=== PATIENT | male | born 1970 | race Caucasian/White ===

== ENCOUNTER 2022-05-08 09:32 | Outpatient (REF) | payer OTHER, SELFPAY ==
--- NOTE | ~2022-05-08 | US_ITS ---
EXAMINATION: US ABDOMEN LIMITED CLINICAL INFORMATION: Abnormal liver enzymes. COMPARISON: None TECHNIQUE: Real-time imaging of the right upper quadrant abdominal viscera. FINDINGS: PANCREAS: Normal. LIVER: The liver is normal in size. The liver contour is normal. There is diffuse increased liver parenchymal echogenicity, consistent with hepatic steatosis. No focal hepatic lesion. There is no intrahepatic biliary duct dilatation seen. GALLBLADDER: The gallbladder is physiologically distended. Gallbladder is filled with multiple large stones. There is echogenic bile. No fluid is seen in the gallbladder wall and no pericholecystic fluid collections. Roberson's sign is negative. COMMON BILE DUCT: Normal in caliber measuring 0.4 cm in diameter. RIGHT KIDNEY: Normal. No hydronephrosis. No renal calculi or focal parenchymal lesions. The kidney measures 10.9 cm in maximum dimension. FREE FLUID: None. US/US abdomen limited IMPRESSION: 1. Hepatic steatosis. 2. Cholelithiasis without cholecystitis.
== END 2022-05-08 09:33 | disposition home or self-care (01) ==
LOC: HO.US 09:32
PROVIDERS: Visit Provider Internal Medicine
DX: R79.89 Other specified abnormal findings of blood chemistry (principal)
CPT/HCPCS: 76705

== ENCOUNTER → 2022-06-09 09:43 | Outpatient (BNVA) | payer OTHER, SELFPAY | PROVIDERS: PCP Internal Medicine; Referring Provider Internal Medicine; Visit Provider Internal Medicine Cardiovascular Disease | DX: R07.89 Other chest pain (principal); I10 Essential (primary) hypertension | CPT/HCPCS: 93005 ==

== ENCOUNTER → 2022-06-30 08:00 | Outpatient (REF) | payer OTHER, SELFPAY ==
--- NOTE | 2022-06-30 08:03 | CA_ITS ---
Transthoracic Echocardiogram Patient (Last, First, Middle): Juan Becerra E Gender: Male Date of : 1970 Age: 52 Procedure Date: 06/30/2022 Procedure Type: Transthoracic Echocardiogram Location: OP Height: 160.02 cm Weight: 76.2 kg BSA: 1.80 m2 Heart Rate: bpm BP: 132 / 89 mmHg Retail Beauty Specialist: OSCAR Referring MD: Jose Zepeda MD Symptoms: I10 - Essential (primary) hypertension Study Quality: Adequate ECG Rhythm: Sinus Conclusions: - The left ventricular systolic function is normal. The calculated ejection fraction is 59% by biplane method. - LV peak GLS -19.9%. - No obvious valvular pathology seen on this study. Findings Left Ventricle Normal left ventricular cavity size. There is normal left ventricular wall thickness. The left ventricular systolic function is normal. The calculated ejection fraction is 59% by biplane method. There is no evidence of regional wall motion abnormalities. Diastolic function is normal for age. LV peak GLS -19.9%. Right Ventricle Normal right ventricular cavity size and systolic function. Atria Both atria are normal in size. Aortic Valve There is a normal trileaflet aortic valve. There is no aortic valve stenosis. There is no aortic valve regurgitation. Mitral Valve The mitral valve appears normal. There is trace mitral valve regurgitation. There is no mitral valve stenosis. Pulmonic Valve The pulmonic valve is likely normal. Tricuspid Valve Normal tricuspid valve structure. There is trace tricuspid valve regurgitation. There is no evidence of pulmonary hypertension. Great Vessels The asc aorta and aortic arch are normal in size. Venous The inferior vena cava is normal in size and collapses greater than 50% with inspiration. Pericardium/Pleural There is no evidence of pericardial effusion. Prior Study Comparison No prior study available for comparison. Recommendations, Care & Conclusions No obvious valvular pathology seen on this study. Measurements 2D Linear Measurements IVSd: 0.89 0.6-0.9/0.6-1.0 cm LVIDd: 5.14 3.9-5.3/4.2-5.9 cm LVIDd Index: 2.86 2.4-3.2/2.2-3.1 cm/m2 LVIDs: 3.08 2.0-3.6 cm LVPWd: 0.83 0.7-1.1 cm LA Diam: 3.80 2.7-3.8/3.0-4.0 cm LAIDs Index: 2.11 1.5-2.3 cm/m2 LV Mass: 193.78 67-162/88-224 g LV Mass Index: 107.66 43-95/49-115 g/m2 LVOT Diam: 1.90 3.0+(-)1.3 cm 2D Systolic Function EF 4C: 57.40 >55% EF 2C: 60.20 >55% EF BiP: 58.80 >55% Mitral Valve MV Pk E: 0.90 MV PK A: 0.72 MV Decel Time: 187.00 E/A: 1.30 E'Lateral: 12.10 E'Medial: 7.18 E/E' Med: 12.60 E/E' Lat: 7.50 PHT: 55.00 MVA PHT: 4.00 Decel Bulloch: 4.84 Aortic Valve AoV Pk Zbigniew: 1.45 AoV Mn Zbigniew: 1.05 AoV VTI: 0.35 AoV Pk Grad: 8.00 Aov Mn Grad: 5.00 VALENTINA Cont.VTI: 1.97 LVOT LVOT Pk Zbingiew: 1.07 LVOT Mn Zbigniew: 0.72 LVOT VTI: 0.24 LVOT Pk Grad: 5.00 LVOT Mn Grad: 2.00 LVOT Diam: 1.90 LVOT Area: 2.84 Diastolic Function MV Pk E: 0.90 MV Pk A: 0.72 E/A: 1.30 E'Medial: 7.18 E/E' Med: 12.60 E' Laterial: 12.10 E/E' Lat: 7.50 Right Ventricle TAPSE (mm): 22.60 TVS' Zbigniew: 13.30 Tricuspid Valve TR Pk Zbigniew: 2.13 TR Pk Grad: 18.00 RA Press: 3.00 RVSP: 21.00 Great Vessels Aorta Sinus of Valsalva: 3.33 2.0-3.[address] Ridge: 2.70 1.7-3.4 cm Ao Asc: 3.40 2.1-3.4 cm Ao Arch: 2.90 Updated in Other Vendor System with Status of Final Brent oMtta MD electronically signed on 06/30/2022 4:50:13 PM with status of Final
== END ==
LOC: HO.CARD 08:00
PROVIDERS: Visit Provider Internal Medicine Cardiovascular Disease
DX: I10 Essential (primary) hypertension (principal)
CPT/HCPCS: 93306; 93356

== ENCOUNTER → 2022-07-09 10:52 | Outpatient (REF) | payer OTHER, SELFPAY ==
--- NOTE | 2022-07-09 10:57 | CA_ITS ---
Acquisition Time: 2022-07-09 10:57:19 Total Exercise Time: 00:10:46 Test Indications: CP Medications: SEE H Protocol: GALI Max HR: 176 BPM 106% of Pred: 166 BPM Max BP: 164/100 mmHG Max Work Load: 13.0 METS Exercise stress test exercise 10 min 46 sec of Gali protocol achieving 96% MPHR, without anginal symptoms, without arrythmias, with normotensive response to exericse, without EKG changes, Echo images obtained by tech at rest and immediately post peak exercise. Definty contrast used. Non-specific ST changes in late recovery. Test reviewed with Dr. Manriquez. Referred By: Jose Zepeda Overread By: BANDAR RAY
== END ==
LOC: HO.CARD 10:52
PROVIDERS: Visit Provider Internal Medicine Cardiovascular Disease
DX: R07.89 Other chest pain (principal); I10 Essential (primary) hypertension
CPT/HCPCS: 93350; Q9957

== ENCOUNTER → 2022-07-10 08:45 | Outpatient (BNVA) | payer OTHER, SELFPAY | PROVIDERS: PCP Internal Medicine; Visit Provider Internal Medicine Cardiovascular Disease | DX: Z13.89 Encounter for screening for other disorder (principal) ==

== ENCOUNTER → 2022-08-13 07:49 | Outpatient (BNVA) | payer OTHER, SELFPAY | PROVIDERS: PCP Internal Medicine; Referring Provider Internal Medicine; Visit Provider Nurse Practitioner Family ==

== ENCOUNTER 2023-12-02 07:54 | Outpatient (REF) | payer OTHER, SELFPAY ==
[2023-12-02 14:22] LABS: MANUAL DIFF FLAG NO
[2023-12-02 14:26] LABS: Basophils Absolute Auto 0.1 X10*3/uL (0.0-0.2); Basophils Percent Auto 0.7 % (0-2); Eosinophils Absolute Auto 0.4 X10*3/uL (0.0-0.4); Eosinophils Percent Auto 6.3 % (0-4); Hematocrit 46.7 % (42.0-52.0); Hemoglobin 15.9 g/dl (14.0-18.0); Imm Gran Abs Auto 0.02 X10*3/uL (0.00-0.03); Imm Gran Pct Auto 0.3 % (0.0-0.4); Lymphocytes Absolute Auto 1.5 X10*3/uL (1.2-4.9); Lymphocytes Percent Auto 21.6 % (20-40); Mean Corpuscular Hemoglobin 29.7 pg (27.0-33.0); Mean Corpuscular Volume 87.1 fL (80.0-98.0); Monocytes Absolute Auto 0.7 X10*3/uL (0.1-1.2); Monocytes Percent Auto 9.7 % (2-11); Neutrophils Absolute Auto 4.2 x10*3/uL (2.0-8.3); Neutrophils Percent Auto 61.4 % (45-73); Platelet Count 235 X10*3/uL (160-400); Red Blood Count 5.36 X10*6/uL (4.60-5.80); Red Cell Distribution Width 12.1 % (11.0-16.0); White Blood Count 6.8 X10*3/uL (4.8-10.8)
[2023-12-02 14:46] LABS: Alanine Aminotransferase 26 U/L (0-40); Albumin Level 4.3 g/dL (3.5-5.0); Alkaline Phosphatase 65 U/L (39-117); Anion Gap 10 (12-20); Aspartate Amino Transferase 22 U/L (5-37); Bilirubin Total 0.6 mg/dL (0.0-1.0); Blood Urea Nitrogen 15 mg/dL (9-16); Calcium 9.3 mg/dL (8.4-10.2); Carbon Dioxide 32 mmol/L (22-29); Chloride 104 mmol/L (96-108); Cholesterol 235 mg/dL (<200); Estimated Glomerular Filt Rate > 60; Glucose Random 94 mg/dL (60-115); HDL Cholesterol 49 mg/dL (>40); LDL Cholesterol Calculated 166 mg/dL (<100); Potassium 3.4 mmol/L (3.3-5.1); Sodium 143 mmol/L (135-145); Total Protein 7.2 g/dL (6.5-8.0); Triglycerides 101 mg/dL (<150)
[2023-12-02 14:56] LABS: Prostate Specific Antigen Scr 0.53 ng/mL (<0.05-4.0)
[2023-12-02 15:02] LABS: TSH reflex Free T4 1.34 uIU/mL (0.32-4.0)
[2023-12-04 13:49] LABS: HCV Log PCR <1.18 NOT DETECTED Log IU/mL (NOT DETECTED); HepC Viral Load <15 NOT DETECTED IU/mL (NOT DETECTED)
== END 2023-12-02 07:55 | disposition home or self-care (01) ==
LOC: HO.CHCLDS 07:54
PROVIDERS: Visit Provider Internal Medicine
DX: Z00.00 Encounter for general adult medical examination without abnormal findings (principal); I10 Essential (primary) hypertension; Z12.5 Encounter for screening for malignant neoplasm of prostate
CPT/HCPCS: 36415; 80053; 80061; 84153; 84443; 85025; 87522

== ENCOUNTER 2024-04-14 08:10 | Outpatient (REF) | payer OTHER, SELFPAY ==
[2024-04-14 14:21] LABS: Cholesterol 239 mg/dL (<200); HDL Cholesterol 50 mg/dL (>40); LDL Cholesterol Calculated 162 mg/dL (<100); Triglycerides 136 mg/dL (<150)
== END 2024-04-14 08:11 | disposition home or self-care (01) ==
LOC: HO.CHCLDS 08:10
PROVIDERS: Visit Provider Internal Medicine
DX: E78.00 Pure hypercholesterolemia, unspecified (principal)
CPT/HCPCS: 36415; 80061

== ENCOUNTER → 2024-05-10 10:17 | Outpatient (BNVA) | payer OTHER, SELFPAY | PROVIDERS: PCP Internal Medicine; Visit Provider Physician Assistant | DX: S93.402A Sprain of unspecified ligament of left ankle, initial encounter (principal); W01.0XXA Fall on same level from slipping, tripping and stumbling without subsequent striking against object, initial encounter | CPT/HCPCS: 73610; 99203 ==

== ENCOUNTER → 2024-05-17 10:30 | Outpatient (BNVA) | payer OTHER, SELFPAY | PROVIDERS: PCP Internal Medicine; Visit Provider Physician Assistant Medical | DX: S93.492A Sprain of other ligament of left ankle, initial encounter (principal); W01.0XXA Fall on same level from slipping, tripping and stumbling without subsequent striking against object, initial encounter | CPT/HCPCS: 99213 ==

== ENCOUNTER 2024-05-25 19:27 | Outpatient (REF) | payer OTHER, SELFPAY ==
--- NOTE | ~2024-05-25 | MR_ITS ---
CLINICAL HISTORY: Swelling and pain after slip and fall on ice MR left ankle without gadolinium Comparison: None Findings: Normal alignment without acute fracture. Minimal incompletely visualized periostitis of the visualized distal fibular shaft above the syndesmosis likely posttraumatic in nature. There is mild neighboring subcutaneous fat edema. Guol-ft-ekrfeaxf contusion of the lateral aspect of the talus in the vicinity of the posterior subtalar joint. Mild subchondral edematous changes in the opposing aspect of the calcaneus. Contusion of the posterior malleolus. Small posterior ankle and posterior subtalar joint effusions with mild ankle synovitis. Torn anterior tibiofibular ligament and grade 2 sprain of the posterior tibiofibular ligament. Grade 2 sprain of the anterior talofibular ligament. Rest of lateral as well as deltoid and spring ligamentous complexes are unremarkable. Longitudinal split tear of the peroneus brevis tendon at and just distal to the lateral malleolus. Small amount of fluid in 2 of the posterior tendon sheaths is likely reactive in nature. Intact extensor tendons. Mild Achilles tendinosis along with minimal distention of the retrocalcaneal bursa. Mild likely reactive edematous changes in the medial aspect of the posterior calcaneal tuberosity at level of the Achilles footprint. Mild plantar fascioapathy at level of its origin. Additionally mildly nodular and partially fusiform thickening (up to 5 mm) of the central band of the plantar aponeurosis at level of the tarsometatarsal joints and distal metatarsal bones suggestive of more distal plantar fascioapathy +/- plantar fibromatosis. Mild sinus tarsi edematous changes. Muscle bulk maintained. Unremarkable neurovascular structures. IMPRESSION: 1. Minimal distal fibular likely posttraumatic periostitis and mild lateral talar bone marrow contusion. 2. Grade 2-3 sprains of the anterior and posterior tibiofibular and anterior talofibular ligaments. 3. Longitudinal split tear of the peroneus brevis tendon at and just distal to the lateral malleolus. 4. Mild Achilles tendinosis. 5. Mild plantar fascikopathy +/-plantar fibromatosis as described above. This document has been electronically signed by: Fariha Cintron MD on 05/26/2024 11:45:19
== END 2024-05-25 19:28 | disposition home or self-care (01) ==
LOC: HO.MRI 19:27
PROVIDERS: PCP Internal Medicine; Visit Provider Internal Medicine
DX: M25.472 Effusion, left ankle (principal)
CPT/HCPCS: 73721

== ENCOUNTER → 2024-05-25 19:30 | Outpatient (BNV) | payer OTHER, SELFPAY | PROVIDERS: PCP Internal Medicine; Visit Provider Radiology Diagnostic Radiology | DX: M25.572 Pain in left ankle and joints of left foot (principal) | CPT/HCPCS: 73721 ==

== ENCOUNTER → 2024-05-31 10:34 | Outpatient (BNVA) | payer OTHER, SELFPAY | PROVIDERS: PCP Internal Medicine; Visit Provider Physician Assistant Medical | DX: S93.402A Sprain of unspecified ligament of left ankle, initial encounter (principal); W01.0XXA Fall on same level from slipping, tripping and stumbling without subsequent striking against object, initial encounter | CPT/HCPCS: 99213 ==

== ENCOUNTER 2024-06-14 07:57 | Outpatient (AMB) | payer OTHER, SELFPAY ==
--- OUTSIDE RECORDS SUMMARY | 2024-06-14 08:00 | XMS_ITS | Encounter Summary ---
Author Organization [employer] Address [address] [facility] 7t [place] [address] Care Team Providers Care Vice President Of Product Marketing Name Role Phone Morena Manley MD Primary Care Provider [phone] Encounter Details Date Type Department Care Team ([facility] st Contact Info) Description 04/14/2024 Orders Only [facility] CH[facility] MED & PEDS [address], [place] [phone] Morena Manley MD [address] [place] [address] Social History Tobacco Use Types Packs/Day Years Used Date Smoking Tobacco: Former Cigarettes 0.3 20 1 2016 Smokeless Tobacco: Never Alcohol Use Standard Drinks/Week Comments Not Currently 6 (1 standard drink = 0.6 oz pur e alcohol) Depression Answer Date Recorded Patient Health Questionnaire-9 Score 0 04/10/2024 Patient Health Questionnaire-9 Score 0 04/10/2024 Last PHQ-9: Questionnaire Data Not on file 0 04/10/2024 Housing Stability Answer Date Recorded What is your housing situation today? I have tahira barbour 11/23/[address] you li ve. Do you have problems with any of the following? None of the above 11/23/2023 Food Insecurity Answer Date Recorded Within the past 12 months, y ou worried that your food would run out before you got money to buy more: Never True 11/23/2023 Within the past 12 months,th e food you bought just didn't last and you didn't have enough money to get more: Never True Transportation Answer Date Recorded In the past 12 months, has l ack of transportation kept you from medical appts, meetings, work or from getting things needed for daily living? No 11/23/2023 Utilities Answer Date Recorded In the past 12 months, has t he electric, gas, oil or water company threatened to shut off services in your home? No 11/23/2023 Depression Answer Date Recorded Patient Health Questionnaire-2 Score 0 04/10/2024 Internet Access Answer Date Recorded Internet Access Q1 Yes 12/03/2023 Internet Access Q2 Not on file 12/03/2023 Sex and Gender Information Value Date Recorded Sex Assigned at Male 02/02/2022 10:14 AM EDT Legal Sex Male 10:14 AM EDT Gender Identity Male 02/02/2022 10:14 AM EDT Sexual Orientation Straight 02/02/2022 10 :14 AM EDT documented as of this encounter Plan of Treatment Not on file documented as of this encounter Procedures Procedure Name Priority Date/Time Associated Diagnosis Comments XR ANKLE 3+ VIEWS LEFT Routine 05/10/2024 11:10 AM EST documented in this encounter Results * XR Ankle 3+ Views Left (05/10/2024 11:10 AM EST) Anatomical Region Laterality Modality Lower Extremities, Ankle Left Radiogr aphic Imaging 05/10/2024 11:1 0 AM EST Narrative 05/10/2024 11:48 AM EST ? [facility] ?[address] ?[place] [address] ?XRay Report ? Signed ? Patient: Hernan,Julio ?MR#: [id number] ?? 4 ? : 1970 ?Acct:[id number] ? Age/Sex: 53 / M ?ADM Date: 05/10/24 ? Loc: HO.WC ? Attending Dr: Neris MISTRY ? Ordering Physician: Karina Reese ?? Date of Service: 05/10/24 ?? Procedure(s): XR ankle LT min 3V ?? Accession Number(s): [id number] ? cc: Morena aMnley MD; Karina Reese ? EXAMINATION: ?? XR ANKLE, LEFT ? CLINICAL INFORMATION: ?? pain in left ankle and joints of left foot ? COMPARISON: ?? None available. ? TECHNIQUE: ?? AP, lateral, and mortise views of the left ankle. ? FINDINGS: ?? Edema pattern versus soft tissue contusion lateral malleolus. No acute ?? cortical disruption or malalignment. No lytic or blastic lesions. Small ?? spur in the calcaneus. ? XR/XR ankle LT min 3V ?? IMPRESSION: ?? No acute fracture or dislocation. ? Electronically signed by: ??Kelvin Solano MD ??05/10/2024 11:45 AM ?? EST RP ? Dictated By: ?Kelvin Pang MD ? Signed By: ?<Electronically signed by Kelvin Griffin MD in OV> ? 05/10/24 1145 ? DD/ 1110 ? TD/TT: 05/10/24 1115 ? [employer]: ? Procedure Note Kaitlinter, Image - 05/10/2024 [place] [address] XRay Report Signed Patient: Juan Becerra EMR#: [id number] 4 : 1970Acct:[id number] Age/Sex: 53 / MADM Date: 05/10/24 Loc: HO. Attending Dr: Neris MISTRY Ordering Physician: Karina Reese Date of Service: 05/10/24 Procedure(s): XR ankle LT min 3V Accession Number(s): [id number] cc: Morena Manley MD; Karina Reese EXAMINATION: XR ANKLE, LEFT CLINICAL INFORMATION: pain in left ankle and joints of left foot COMPARISON: None available. TECHNIQUE: AP, lateral, and mortise views of the left ankle. FINDINGS: Edema pattern versus soft tissue contusion lateral malleolus. No acute cortical disruption or malalignment. No lytic or blastic lesions. Small spur in the calcaneus. XR/XR ankle LT min 3V IMPRESSION: No acute fracture or dislocation. Electronically signed by: Kelvin Solano MD 05/10/2024 11:45 AM EST Dictated By: Kelvin Pang MD Signed By: <Electronically signed by Kelvin Griffin MDin OV> 05/10/24 1145 DD/ 1110 TD/TT: 05/10/24 1115 [employer]: [facility] External Provider IMG XR PROCEDURES Edited Result - Final documented in this encounter Visit Diagnoses Not on filedocumented in this encounter Additional Health Concerns Assessment Noted Time PHQ-9 Depression Total Score: 0 04/10/19 25 1:10 PM EST documented as of this encounter Care Teams Vice President Of Product Marketing Relationship Specialty Start Date End Date Morena Manley MD [address] [place] [id number] PCP - General Internal Medicine 03/30/13 documented as of this encounter
--- OUTSIDE RECORDS SUMMARY | 2024-06-14 08:00 | XMS_ITS | Encounter Summary ---
Author Organization [employer] Address [address] [facility] 7t [place] [address] Care Team Providers Care Cone Operator Name Role Phone Morena Manley MD Primary Care Provider [phone] Encounter Details Date Type Department Care Team ([facility] Contact Info) Description 05/25/2024 Orders Only [facility] External Provider, [facility] Social History Tobacco Use Types Packs/Day Years Used Date Smoking Tobacco: Former Cigarettes 0.3 20 2016 Smokeless Tobacco: Never Alcohol Use Standard [...] Procedure Name Priority Date/Time Associated Diagnosis Comments MR ANKLE WO CONTRAST LEFT Routine 05/26/2024 11:45 AM EST documented in this encounter Results * MR Ankle w/o Contrast Left (05/26/2024 11:45 AM EST) Anatomical Region Laterality Modality Lower Extremities, Ankle Left Magneti c Resonance 05/26/2024 11:4 5 AM EST Narrative 05/26/2024 11:46 AM EST ? [facility] ?[address] ?[place] [address] ? Magnetic Resonance Report ? Signed ? Patient: Juan Becerra ?MR#: [id number] ?? 4 ? : 1970 ?Acct:[id number] ? Age/Sex: 53 / M ?ADM Date: 05/25/24 ? Loc: HO.MRI ? Attending Dr: Eliazar Bone MD ? Ordering Physician: Eliazar Bone MD ?? Date of Service: 05/25/24 ?? Procedure(s): MR ankle LT wo con ?? Accession Number(s): [id number] ? cc: Morena Manley MD; Eliazar Bone MD ? CLINICAL HISTORY: Swelling and pain after slip and fall on ice ? MR left ankle without gadolinium ? Comparison: None ? Findings: ?? Normal alignment without acute fracture. Minimal incompletely visualized ?? periostitis of the visualized distal fibular shaft above the syndesmosis ?? likely posttraumatic in nature. There is mild neighboring subcutaneous fat ?? edema. ?? Vree-gs-orxinduj contusion of the lateral aspect of the talus in the ?? vicinity of the posterior subtalar joint. Mild subchondral edematous ?? changes in the opposing aspect of the calcaneus. ?? Contusion of the posterior malleolus. ? Small posterior ankle and posterior subtalar joint effusions with mild ?? ankle synovitis. ? Torn anterior tibiofibular ligament and grade 2 sprain of the posterior ?? tibiofibular ligament. Grade 2 sprain of the anterior talofibular ?? ligament. Rest of lateral as well as deltoid and spring ligamentous ?? complexes are unremarkable. ? Longitudinal split tear of the peroneus brevis tendon at and just distal ?? to the lateral malleolus. Small amount of fluid in 2 of the posterior ?? tendon sheaths is likely reactive in nature. Intact extensor tendons. ? Mild Achilles tendinosis along with minimal distention of the ?? retrocalcaneal bursa. Mild likely reactive edematous changes in the medial ?? aspect of the posterior calcaneal tuberosity at level of the Achilles ?? footprint. ? Mild plantar fascioapathy at level of its origin. Additionally mildly ?? nodular and partially fusiform thickening (up to 5 mm) of the central band ?? of the plantar aponeurosis at level of the tarsometatarsal joints and ?? distal metatarsal bones suggestive of more distal plantar fascioapathy +/- ?? plantar fibromatosis. ? Mild sinus tarsi edematous changes. ?? Muscle bulk maintained. Unremarkable neurovascular structures. ? IMPRESSION: ?? 1. Minimal distal fibular likely posttraumatic periostitis and mild ?? lateral talar bone marrow contusion. ?? 2. Grade 2-3 sprains of the anterior and posterior tibiofibular and ?? anterior talofibular ligaments. ?? 3. Longitudinal split tear of the peroneus brevis tendon at and just ?? distal to the lateral malleolus. ?? 4. Mild Achilles tendinosis. ?? 5. Mild plantar fascikopathy +/-plantar fibromatosis as described above. ? This document has been electronically signed by: Fariha Cintron MD on ?? 05/26/2024 11:45:19 ? Dictated By: ?Fariha Cintron MD ? Signed By: ?<Electronically signed by Fariha Cintron MD in OV> ? 05/26/24 1146 ? DD/ 1145 ? TD/TT: 05/26/24 1145 ? Senior Process Engineer: ? Procedure Note Donotuseinterpreter, Image - 05/26/[address] [address] Magnetic Resonance Report Signed Patient: Juan Becerra EMR#: [id number] 4 : 1970Acct:[id number] Age/Sex: 53 / MADM Date: 05/25/24 Loc: HO.MRI Attending Dr: Eliazar Bone MD Ordering Physician: Eliazar Bone MD Date of Service: 05/25/24 Procedure(s): MR ankle LT wo con Accession Number(s): [id number] cc: Morena Manley MD; Eliazar Bone MD CLINICAL HISTORY: Swelling and pain after slip and fall on ice MR left ankle without gadolinium Comparison: None Findings: Normal alignment without acute fracture. Minimal incompletely visualized periostitis of the visualized distal fibular shaft above the syndesmosis likely posttraumatic in nature. There is mild neighboring subcutaneous fat edema. Yvmw-gv-yzthvudi contusion of the lateral aspect of the talus in the vicinity of the posterior subtalar joint. Mild subchondral edematous changes in the opposing aspect of the calcaneus. Contusion of the posterior malleolus. Small posterior ankle and posterior subtalar joint effusions with mild ankle synovitis. Torn anterior tibiofibular ligament and grade 2 sprain of the posterior tibiofibular ligament. Grade 2 sprain of the anterior talofibular ligament. Rest of lateral as well as deltoid and spring ligamentous complexes are unremarkable. Longitudinal split tear of the peroneus brevis tendon at and just distal to the lateral malleolus. Small amount of fluid in 2 of the posterior tendon sheaths is likely reactive in nature. Intact extensor tendons. Mild Achilles tendinosis along with minimal distention of the retrocalcaneal bursa. Mild likely reactive edematous changes in the medial aspect of the posterior calcaneal tuberosity at level of the Achilles footprint. Mild plantar fascioapathy at level of its origin. Additionally mildly nodular and partially fusiform thickening (up to 5 mm) of the central band of the plantar aponeurosis at level of the tarsometatarsal joints and distal metatarsal bones suggestive of more distal plantar fascioapathy +/- plantar fibromatosis. Mild sinus tarsi edematous changes. Muscle bulk maintained. Unremarkable neurovascular structures. IMPRESSION: 1. Minimal distal fibular likely posttraumatic periostitis and mild lateral talar bone marrow contusion. 2. Grade 2-3 sprains of the anterior and posterior tibiofibular and anterior talofibular ligaments. 3. Longitudinal split tear of the peroneus brevis tendon at and just distal to the lateral malleolus. 4. Mild Achilles tendinosis. 5. Mild plantar fascikopathy +/-plantar fibromatosis as described above. This document has been electronically signed by: Fariha Cintron MD on 05/26/2024 11:45:19 Dictated By: Fariha Cintron MD Signed By: <Electronically signed by Fariha Cintron MD in OV> 05/26/24 1146 DD/ 1145 TD/TT: 05/26/24 1145 Senior Process Engineer: [facility] External Provider IMG MRI PROCEDURES Final Result documented in this encounter Visit Diagnoses Not on filedocumented in this encounter Additional Health Concerns Assessment Noted Time PHQ-9 Depression Total Score: 0 04/10/19 25 1:10 PM EST documented as of this encounter Care Teams Cone Operator Relationship Specialty Start Date End Date Morena Manley MD [address] [place] [id number] PCP - General Internal Medicine 03/30/13 documented as of this encounter
--- OUTSIDE RECORDS SUMMARY | 2024-06-14 08:00 | XMS_ITS | Encounter Summary ---
Author Organization [employer] Address [address] [facility] 7t [place] [address] Care Team Providers Care Superintendent Maintenance Airports Name Role Phone Morena Manley MD Primary Care Provider [phone] Encounter Details Date Type Department Care Team ([facility] st Contact Info) Description 08/17/2023 Orders Only [facility] CH[facility] MED & PEDS [address] [place], [place] [phone] Morena Manley MD [address] [place] [address] Acute midline low back pain without sciatica (Primary Dx) Social History Tobacco Use Types Packs/Day Years Used Date Smoking Tobacco: Unknown Cigarettes 0.3 20 1996 - 2016 Smokeless Tobacco: Never Alcohol Use Standard Drinks/Week Comments Not Currently 6 (1 standard drink = 0.6 oz pur e alcohol) Depression Answer Date Recorded Patient Health Questionnaire-9 Score 0 04/16/2022 Depression Answer Date Recorded Patient Health Questionnaire-2 Score 0 04/16/2022 Sex and Gender Information Value Date Recorded Sex Assigned at Male 02/02/2022 10:14 AM EDT Legal Sex Male 10:14 AM EDT Gender Identity Male 02/02/2022 10:14 AM EDT Sexual Orientation Straight 02/02/2022 10 :14 AM EDT documented as of this encounter Plan of Treatment Not on file documented as of this encounter Visit Diagnoses Diagnosis Acute midline low back pain without sciatica- Primary documented in this encounter Additional Health Concerns Assessment Noted Time PHQ-9 Depression Total Score: 0 04/16/19 23 2:04 PM EST documented as of this encounter Care Teams Superintendent Maintenance Air[employer] Relationship Specialty Start Date End Date Morena Manley MD [address] [place] [id number] PCP - General Internal Medicine 03/30/13 documented as of this encounter
--- OUTSIDE RECORDS SUMMARY | 2024-06-14 08:00 | XMS_ITS | Encounter Summary ---
Author Organization [employer] Address [address] [facility] 7[address] [place] [address] Care Team Providers Care Field Operations Coordinator Name Role Phone Morena Manley MD Primary Care Provider [phone] Reason for Visit * Reason Comments Med Refill Encounter Details Date Type Department Care Team ([facility] st Contact Info) Description 05/17/2024 Refill [facility] CHC MED & PEDS [address] [place], [place] [phone] Morena Manley MD [address] [place] [address] Primary hypertension Social History Tobacco Use Types Packs/Day Years [...] as of this encounter Visit Diagnoses Diagnosis Primary hypertension Unspecified essential hypertension documented in this encounter Additional Health Concerns Assessment Noted Time PHQ-9 Depression Total Score: 0 04/10/19 25 1:10 PM EST documented as of this encounter Care Teams Field Operations Coordinator Relationship Specialty Start Date End Date Morena Manley MD [address] [place] [address] PCP - General Internal Medicine 03/30/13 documented as of this encounter
--- OUTSIDE RECORDS SUMMARY | 2024-06-14 08:00 | XMS_ITS | Encounter Summary ---
Author Organization [employer] Address [address] [place] [address] 7t [place] [address] Care Team Providers Care Invoice Machine Operator Name Role Phone Morena Manley MD Primary Care Provider [phone]- [phone] Encounter Details Date Type Department Care Team (Latest Contact Info) Description 10/12/2018 Abstract [facility] CONVERSIONS Dental, Provider, DDS Social History Tobacco Use Types Packs/Day Years Used Date Smoking Tobacco: Never Assessed Sex and Gender Information Value Date Recorded Sex Assigned at Male 02/02/2022 10:14 AM EDT Legal Sex Male 10:14 AM EDT Gender Identity Male 02/02/2022 10:14 AM EDT Sexual Orientation Straight 02/02/2022 10 :14 AM EDT documented as of this encounter Plan of Treatment Not on file documented as of this encounter Visit Diagnoses Not on filedocumented in this encounter Care Teams Invoice Machine Operator Relationship Specialty Start Date End Date Morena Manley MD [address] [place] [address] PCP - General Internal Medicine 03/30/13 documented as of this encounter
--- OUTSIDE RECORDS SUMMARY | 2024-06-14 08:01 | XMS_ITS | Encounter Summary ---
Author Organization [employer] Address [address] [place] [address] 7t [place] [address] Care Team Providers Care Byproducts Supervisor Name Role Phone Morena Manley MD Primary Care Provider +1- [phone] Encounter Details Date Type Department Care Team (Latest Contact Info) Description 04/11/[address] [facility] CONVERSIONS Dental, Provider, DDS Social History Tobacco [...] on filedocumented in this encounter Care Teams Byproducts Supervisor Relationship Specialty Start Date End Date Morena Manley MD [address] [place] [address] PCP - General Internal Medicine 03/30/13 documented as of this encounter
--- OUTSIDE RECORDS SUMMARY | 2024-06-14 08:01 | XMS_ITS | Clinical Summary ---
Author Organization [employer] Address [address] [facility] 7t [place] [address] Care Team Providers Care Public Address Systems Mechanic Name Role Phone Morena Manley MD Primary Care Provider +1- [phone] Allergies No known active allergies Medications Multiple Vitamin (Multi-Vitamin) tablet Take 1 tablet by mouth Once daily. 02/06/20 20 Active naproxen (Naprosyn) 500 MG tablet Take 1 tablet by mouth every 12 (twelve) hours. 05/16/19 20 Active albuterol (ProAir HFA) 108 (90 Base) MCG/ACT inhaler inhale 2 puff by inhalation route every 4 - 6 hours as needed 04/19/19 19 Active cholecalciferol (Vitamin D-3) 50 MCG (2000 UT) capsule take 1 by Oral route once 07/03/19 20 Active azithromycin (Zithromax) 250 MG tablet Take 2 tabs orally once a day on day 1 and then 1 tab orally daily for 4 more days 6 tablet 01/09/20 23 Active azelastine (Astelin) 0.1 % nasal spray Administer 1 spray into each nostril 2 times daily. Use in each nostril as directed 30 mL 1 01/09/20 23 Active methocarbamol (Robaxin) 750 MG tabletIndication s:Acute midline low back pain without sciatica Take 1 tablet (750 mg) by mouth 4 times daily for 10 days. 40 tablet 08/17/19 24 Active nystatin (Nystop) 492620 UNIT/GM powderIndication s:Candidal balanitis Apply topically 2 times daily. 30 g 12/01/19 24 025 Active ALPRAZolam (Xanax) 1 MG tablet Take 1 tablet (1 mg) by mouth if needed at bedtime for anxiety for up to 7 days. 4 tablet 01/03/20 24 Active lisinopril-hydro CHLOROthiazide 20-25 MG tabletIndication s:Primary hypertension TAKE ONE TABLET EVERY MORNING 30 tablet 11 05/18/19 25 Active lisinopril-hydro CHLOROthiazide 20-25 MG tabletIndication s:Primary hypertension TAKE ONE TABLET EVERY MORNING 30 tablet 11 05/03/19 24 025 Discontinued Active Problems Problem Noted Date Diagnosed Date Hypercholesterolemia 04/10/2024 Primary hypertension 04/10/2024 Encounters Date Type Department Care Team Description 05/25/2024 Orders Only [facility] External Provider, [facility] 05/17/2024 Refill [facility] [address] [place] [address] Morena Manley MD Primary hypertension 04/14/2024 Telephone [facility] [address] [place] [address] Morena Manley MD 04/14/2024 Orders Only [facility] [address] [place] [address] Morena Manley MD 04/10/2024 1:00 PM EST Office Visit [facility] [address] [place] [address] Morena Manley MD Hypercholesterolemia (Primary Dx); Primary hypertension 04/10/2024 Travel from Last 3 Months Immunizations Name Administration Dates Next Due Influenza Injectable Quadriv alant Preservative Free IIV4 MDCK 12/30/2022,12/25/2021,12/24/2020,2019,01/03/2020 Influenza, IIV3, injectable 01/15/2016 Influenza, seasonal, injecta ble, preservative free 12/15/2023 Pfizer Covid-19 Vaccine 12+ 02/20/2021,,06/28/2020 Pfizer Covid-19 Vaccine 12+ Bivalent 01/21/2022 Tdap 09/08/2021 Zoster, Recombinant 06/01/2022 Family History Medical History Relation Name Comments Diabetes Father Hypertension Mother Relation Name Status Comments Father Mother Social History Tobacco Use Types Packs/Day Years Used Date Smoking Tobacco: Former Cigarettes 0.3 20 1 7 - 2016 Smokeless Tobacco: Never Tobacco Cessation:Counseling Given: Not Answered Alcohol Use Standard Drinks/Week Comments Not Currently [...] Orientation Straight 02/02/2022 10 :14 AM EDT Last Filed Vital Signs Vital Sign Reading Time Taken Comments Blood Pressure 112/80 04/10/2024 1:08 PM EST Pulse 68 04/10/2024 1:08 PM EST Temperature 36.7 ??C (98 ??F) 04/10/2024 1:08 PM EST Respiratory Rate 16 04/10/2024 1:08 PM EST Oxygen Saturation 98% 12/01/2023 2:27 PM EDT Inhaled Oxygen Concentration - - Weight 76.7 kg (169 lb) 04/10/2024 1:08 PM EST Height 160 cm (5' 3 ) 04/10/2024 1:08 PM EST Body Mass Index 29.94 04/10/2024 1:08 PM EST Plan of Treatment Health Maintenance Due Date Last Done Comments CT Colonography 1968 Colonoscopy 1968 Colorectal Cancer Screening 1968 FIT DNA/Cologuard 1968 FIT 1968 FOBT 1968 Sigmoidoscopy 1968 Alcohol/Substance Use Screening 1980 Hepatitis B Vaccines (1 of 3 - 19+ 3-dose series) 06/23/1987 Pneumococcal Vaccine: 50+ Years (1 of 1 - PCV) 2018 COVID-19 Vaccine ( season) 2023 01/21/2022, 02/20/2021, 07/19/2020, Additional history exists SDOH Screening 11/22/2024 11/23/2023 Depression Screening 04/10/2025 04/10/2024, 04/10/19 Tobacco Screening 04/10/2025 04/10/2024 Lipid Panel 04/14/2029 04/14/2024, 11/04, 04/10/2022, Additional history exists DTaP/Tdap/Td Vaccines (2 - Td or Tdap) 09/09/2031 09/08/2021 RSV Patients and Patients Aged 60 years or older (1 - 1-dose 75+ series) 06/23/2043 Zoster Vaccines Discontinued 06/01/2022 Hepatitis C Screening Completed 12/02/2023 Influenza Vaccine Completed 12/15/2023, , 12/25/2021, Additional history exists HIB Vaccines Aged Out No longer eligi ble based on patient's age to complete this topic HIV Screening Discontinued HPV Vaccines Aged Out No longer eligi ble based on patient's age to complete this topic Hepatitis A Vaccines Aged Out No long er eligible based on patient's age to complete this topic IPV Vaccines Aged Out No longer eligi ble based on patient's age to complete this topic Meningococcal Vaccine Aged Out No lyn jasiel eligible based on patient's age to complete this topic RSV under 20 months Aged Out No longe r eligible based on patient's age to complete this topic Rotavirus Vaccines Aged Out No longer eligible based on patient's age to complete this topic Procedures Procedure Name Priority Date/Time Associated Diagnosis Comments MR ANKLE WO CONTRAST LEFT Routine 05/26/2024 11:45 AM EST XR ANKLE 3+ VIEWS LEFT Routine 05/10/2024 11:10 AM EST LIPID PANEL, STANDARD Routine 04/14/2024 9:29 AM EST Hypercholesterolemi a HEPATITIS C VIRAL RNA, QUANTITATIVE, REAL-TIME PCR Routine 12/02/2023 10:53 AM EDT Annual physical exam from Last 3 Months or Most Recently Relevant to Health Maintenance Results * MR Ankle w/o Contrast Left (05/26/2024 11:45 AM EST) Anatomical Region Laterality Modality Lower Extremities, Ankle Left Magneti c Resonance 05/26/2024 11:4 5 AM EST Narrative 05/26/2024 11:46 AM EST ? [facility] ?[address] ?[place] [address] ? Magnetic Resonance Report ? Signed ? Patient: Juan Becerra ?MR#: [id number] ?? 4 ? : 1970 ?Acct:[id number] ? Age/Sex: 53 / M ?ADM Date: 05/25/24 ? Loc: HO.MRI ? Attending Dr: Eliazar Bone MD ? Ordering Physician: Eliazar Bone MD ?? Date of Service: 05/25/24 ?? Procedure(s): MR ankle LT wo con ?? Accession Number(s): [id number] ? cc: Morena Manley MD; Eliazar Bone [...] mild neighboring subcutaneous fat ?? edema. ?? Vdhw-do-ignhrqsu contusion of the lateral aspect of the [...] DD/ 1145 ? TD/TT: 05/26/24 1145 ? Aircraft Ordnance Systems Mechanic: ? Procedure Note Donjordenter, Image - 05/26/2024 [place] [address] Magnetic Resonance Report Signed Patient: Juan Becerra EMR#: [id number] 4 : 1970Acct:[id number] Age/Sex: 53 / MADM Date: 05/25/24 Loc: HO.MRI Attending Dr: Eliazar Bone MD Ordering Physician: Eliazar Bone MD Date of Service: 05/25/24 Procedure(s): MR ankle LT wo con Accession Number(s): [id number] cc: Morena Manley MD; Eliazar Bone MD CLINICAL HISTORY: Swelling and pain after slip and fall on ice MR left ankle without gadolinium Comparison: None Findings: Normal alignment without acute fracture. Minimal incompletely visualized periostitis of the visualized distal fibular shaft above the syndesmosis likely posttraumatic in nature. There is mild neighboring subcutaneous fat edema. Doxr-rj-dovzlkzv contusion of the lateral aspect of the [...] 05/26/24 1146 DD/ 1145 TD/TT: 05/26/24 1145 Aircraft Ordnance Systems Mechanic: us [facility] External Provider IMG MRI PROCEDURES Final Result * XR Ankle 3+ Views Left (05/10/2024 11:10 AM EST) Anatomical Region Laterality Modality Lower Extremities, Ankle Left Radiogr aphic Imaging 05/10/2024 11:1 0 AM EST Narrative 05/10/2024 11:48 AM EST ? [facility] ?[address] ?[place] [address] ?XRay Report ? Signed ? Patient: Hernan,Julio ?MR#: [id number] ?? 4 ? : 1970 ?Acct:[id number] ? Age/Sex: 53 / M ?ADM Date: 02/05/25 ? Loc: HO.WC ? Attending Dr: Neris MISTRY ? Ordering Physician: Karina Reese ?? Date of Service: 05/10/24 ?? Procedure(s): XR ankle LT min 3V ?? Accession Number(s): [id number] ? cc: Morena Manley MD; Karina Reese ? EXAMINATION: ?? XR [...] DD/ 1110 ? TD/TT: 05/10/24 1115 ? Aircraft Ordnance Systems Mechanic: ? Procedure Note Raz, Image - 05/10/[address] [address] XRay Report Signed Patient: Juan Becerra EMR#: [id number] 4 : 1970Acct:[id number] Age/Sex: 53 / MADM Date: 05/10/24 Loc: . Attending Dr: Neris MISTRY Ordering Physician: Karina Reese Date of Service: 05/10/24 Procedure(s): XR ankle LT min 3V Accession Number(s): [id number] cc: Morena Manley MD; Karina Reese EXAMINATION: [...] 05/10/24 1145 DD/ 1110 TD/TT: 05/10/24 1115 Aircraft Ordnance Systems Mechanic: [facility] External Provider IMG XR PROCEDURES Edited Result - Final * (ABNORMAL) Lipid Panel, Standard (04/14/2024 9:29 AM EST) Triglycerides 136 <150 mg/dL [facility] Comment:Desirable Triglyceri de: less than 150 mg/dLBorderline High Triglyceride 150-199 mg/dLHigh Triglyceride: 200-499 mg/dLVery High Triglyceride: greater than or equal to 5OO mg/dL Cholesterol 239(H) <200 mg/dL [facility] Comment:Desirable Cholestero l: less than 200 mg/dLBorderline High Cholesterol: 200-239 mg/dLHigh Cholesterol: greater than 239 mg/dL LDL Cholesterol Calculated 162(H) <100 mg/dL [facility] Comment:Desirable LDL: less than 100 mg/dLNear Optimal/Above Optimal LDL: 110- 129 mg/dLBorderline High LDL: 130-159 mg/dLHigh LDL: 160-189 mg/dLVery High LDL: greater than or equal to 190 mg/dL HDL Cholesterol 50 >40 mg/dL [facility] Comment:Desirable HDL: great er than 40 mg/dL Note: This HDL assay may give artificially low results in patients with liver disease. Blood Venous blood specimen / Unknown 04/14/2024 9:29 AM EST 04/14/2024 1:59 PM EST Morena Manley MD LAB BLOOD ORDERABLES Final Result [facility] [address] [place] [phone] * Hepatitis C Viral RNA, Quantitative, Real-Time PCR (12/02/2023 10:53 AM EDT) Hepatitis C Viral Load <15 NOT DETECTED NOT DETECTED IU/mL [facility] HCV Log PCR <1.18 NOT DETECTED NOT DETECTED Log IU/mL [facility] Comment:For additional infor more, please refer tohttp://education.[employer]/faq/KGS83u2(This link is being provided for informational/educational purposes only.)THIS TEST WAS PERFORMED AT:[facility] [place] [id number] SCHAEFER MD Blood Venous blood specimen / Unknown 12/02/2023 10:53 AM EDT 12/02/2023 2:18 PM EDT Morena Manley MD LAB BLOOD ORDERABLES Final Result [facility] [address] [place] [address] [phone] from Last 3 Months or Most Recently Relevant to Health Maintenance Insurance [facility] [address] [place] [address] [place] STAND ADULT Care Teams Public Address Systems Mechanic Relationship Specialty Start Date End Date Morena Manley MD [address] [place] [phone] PCP - General Internal Medicine 03/30/13
--- NOTE | 2024-06-14 08:04 | MHC.OFFVIS ---
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 He reports that he fell at work on 05/08/24. He has been seen at [facility]. Patient reports occasional pain on the medial aspect of the left ankle as well as swelling on the lateral aspect that has not resolved since the injury. Denies numbness or tingling. Denies prior injuries or surgeries to the left ankle. Patient was given a surgical shoe and leg brace, he continues to wear this. He is currently working light duty. Allergies No Known Allergies Allergy (Verified 06/14/24 08:09) Medication List - Last Reconciled 06/14/24 by Jeannine Bettencourt PA-C bisacodyl (Dulcolax (bisacodyl)) 10 mg (2 x 5 mg) PO ONCE 1 day lisinopril-hydrochlorothiazide 20-25 mg 1 tab PO DAILY multivitamin 1 tab PO DAILY polyethylene glycol 3350 (Miralax) 238 grams PO ONCE HPI HPI SPORTS INFORMATION DIRECTOR-WC Left ankle sprain DOI 05/08/24: Details: 53-year-old gentleman presents to the office today for an injury he sustained to his left ankle while at work on 05/08/24. He states he slipped on ice and fell twisting the ankle. He immediately had difficulty walking at the time of the injury. The following day he was see at [facility], obtained xrays which were negative for fracture, MRI was ordered. While at the [facility] he was placed in an andrea wrap, air cast and post op shoe. He c.o pain along the medial aspect of the ankle along with swelling. C/o pain with prolonged walking. No other treatment to date. 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 [employer] Review of Systems Const All systems reviewed & are unremarkable except as noted in HPI and below Physical Exam Vital Signs: BMI result Body Mass Index 29.6 Const General: cooperative and no acute distress Orientation/consciousness: patient oriented x3 Resp Effort & Inspection: normal respiratory effort and able to speak in complete sentences Cardio Peripheral pulses: Peripheral pulses 2+ throughout Neuro General: patient oriented x3 Extrem Other: Left ankle full ROM without pain Mild tenderness along the ATFL and peroneal tendon Mild discomfort with eversion against resistance. No ligamentous laxity Calf supple nontender Neurovascularly intact Results Reviewed Results Reviewed: X-rays of the left ankle obtained on 05/10/2024 -negative for any acute or chronic abnormalities. Ankle mortise intact. MRI lt ankle 05/26/24 IMPRESSION: 1. Minimal distal fibular likely posttraumatic periostitis and mild lateral talar bone marrow contusion. 2. Grade 2-3 sprains of the anterior and posterior tibiofibular and anterior talofibular ligaments. 3. Longitudinal split tear of the peroneus brevis tendon at and just distal to the lateral malleolus. 4. Mild Achilles tendinosis. 5. Mild plantar fascikopathy +/-plantar fibromatosis as described above. Assessment & Plan Assessment & Plan (1) Left ankle sprain: Code(s): S93.402A - Sprain of unspecified ligament of left ankle, initial encounter Category: Medical Plan: At this time he was fit for a lace-up ASO brace which he will wear at all times at work and with any outdoor activities. He was given a work note to return to work on 06/19/2024 limit prolonged standing and limit pushing pulling or carrying greater than 15-20 lb. An order for physical therapy was placed for range of motion gentle strength and proprioceptive training. He will return in 6 weeks for re-evaluation, sooner if needed. Orders: Orders PT Evaluation and Treatment Today S93.402A - Sprain of unspecified ligament of left ankle, initial encounter Coding Level of Care Code New Pt Level 3 (40481) Complex EM visit Add On G2211 Diagnoses Left ankle sprain S93.402A
[2024-06-14 08:05] VITALS: BMI 29.6
== END 2024-06-14 08:39 | disposition home or self-care (01) ==
LOC: HO.HOS 07:57
PROVIDERS: PCP Internal Medicine; Visit Provider Physician Assistant
DX: S93.402A Sprain of unspecified ligament of left ankle, initial encounter (principal); Z04.2 Encounter for examination and observation following work accident
CPT/HCPCS: 99203; G2211

== ENCOUNTER → 2024-06-14 07:57 | Outpatient (BNVA) | payer OTHER, SELFPAY | PROVIDERS: PCP Internal Medicine; Visit Provider Physician Assistant | DX: S93.402A Sprain of unspecified ligament of left ankle, initial encounter (principal) | CPT/HCPCS: 99202 ==

== ENCOUNTER 2024-07-26 08:48 | Outpatient (RCR) | payer OTHER, SELFPAY ==
--- NOTE | 2024-06-29 16:51 | MHC.PT.EP ---
[facility] [place] Office [place] Office [place] Office [address] Dk [place] [address] [phone] F: [phone] F: [phone] F: [phone] F: [phone] Physical Therapy Plan of Care Date of Evaluation: 06/28/24 Date of Surgery: Diagnosis: LEFT ANKLE SPRAIN (AT, PT AND TALONAV) Assessment: MOHAMUD IS A PLEASANT 54 YO MALE WHO REPORTS ON 05/08/24 - SLIPPED AND FELL ON ICE WITH LEFT LEG SLIDING BEHIND AND UNDER HIM. FELT PAIN AND RIPPING/BURNING SENSATION BUT DID NOT GO TO MD THAT DAY - TO [facility] NEXT DAY THEN REFERRED TO [facility]. NOW FOR PT. HAS NOW RETURNED TO WORK, LIGHT DUTY WEARING BRACE NOW OUT OF BOOT. REPORTS WHEN HE IS NOT WEARING THE BRACE PAIN INCREASES. EDEMA HAS IMPROVED. LIVES IN PRIVATE HOME WITH 2 FLOORS, LIVES WITH . AT WORK L/T BUT WILL NEED TO CLIMB LADDER TO ROOF, LIFT INCREASED WEIGHT, AND INCREASE TIME ON FEET PRIOR TO R/T F/D. FREQUENTLY ENJOYS TIME WITH 2 YEAR OLD GRANDSON, 10 YO GRANDDTR. UPON EXAM HE DEMONSTRATES IMPAIRMENTS INCLUDING DECREASED ROM AND STRENGTH, A;TERED GAIT AND BALANCE, DECREASED SOFT TISSUE MOBILITY AND INCREASED PAIN. FUNCTIONAL LIMITATIONS INCLUDE DECREASED TOLERANCE TO STATIC STANDING, WALKING MORE THAN 5 MINS, PERFORMING RECIPROCAL GAIT ON STAIRS. HE REPORTS DECREASED ABILITY TO PERFORM WORK TASKS SUCH STEP STOOLS AND LADDERS. HE REPORTS DIFFICULTY WITH HIGHER DEMAND HOMEMAKING TASKS AND DECREASED PARTICIPATION IN COMMUNITY AND RECREATIONAL ACTIVITIES. 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 Manual therapy to restore motion and function. Therapeutic exercise to improve strength and flexibility. Neuromuscular re-education for posture and balance. Therapeutic activities to return to functional activities of daily living. Electronically signed by: FELIPE FRASER PT DPT Please sign and return to therapist. Thank you for your referral.
== END 2024-08-14 13:48 | disposition home or self-care (01) ==
LOC: HO.PT 08:48
PROVIDERS: PCP Internal Medicine; Visit Provider Physician Assistant
DX: S93.402D Sprain of unspecified ligament of left ankle, subsequent encounter (principal)
CPT/HCPCS: 97110; 97161; 97530

== ENCOUNTER 2024-08-11 13:41 | Outpatient (AMB) | payer OTHER, SELFPAY ==
--- NOTE | 2024-08-11 13:45 | A.OFFVIS_ITS ---
Vital Signs 08/11/24 13:46 Height 5 ft 3 in Weight 167 lb BMI 29.6 Intake Visit Reasons: OV- WC Left ankle sprain DOI 05/08/24 Intake Note: Juan is a 54 year old male who presents today for follow up of a left ankle sprain, WC DOI: 05/08/24. At his last visit he was fitted for a lace-up ASO brace to wear at work and with any outdoor activities. Patient was given a work note to return to work on 06/19/2024; limit prolonged standing and limit pushing pulling or carrying greater than 15-20 lb. Patient was also referred to physical therapy for range of motion gentle strength and proprioceptive training. Patient reports today he is no longer wearing the ankle brace, has also completed PT. Patient states there are certain movements that cause discomfort but he is not taking any medications for it. Allergies No Known Allergies Allergy (Verified 08/11/24 13:53) Medication List - Last Reconciled 08/11/24 by Jeannine Bettencourt PA-C bisacodyl (Dulcolax (bisacodyl)) 10 mg (2 x 5 mg) PO ONCE 1 day lisinopril-hydrochlorothiazide 20-25 mg 1 tab PO DAILY multivitamin 1 tab PO DAILY HPI HPI OV- WC Left ankle sprain DOI 05/08/24: Details: 54-year-old gentleman returns to the office today for a follow-up left ankle sprain date of injury 05/08/2024. He is doing quite well with his activities. He has completed physical therapy and only needs to use the brace with certain activities. 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 [employer] Review of Systems Const All systems reviewed & are unremarkable except as noted in HPI and below Physical Exam Vital Signs: BMI result Body Mass Index 29.6 Const General: cooperative and no acute distress Orientation/consciousness: patient oriented x3 Resp Effort & Inspection: normal respiratory effort and able to speak in complete sentences Cardio Peripheral pulses: Peripheral pulses 2+ throughout Neuro General: patient oriented x3 Extrem Other: Left ankle full ROM without pain No tenderness along the ATFL and peroneal tendon No discomfort with eversion against resistance. No ligamentous laxity Calf supple nontender Neurovascularly intact Assessment & Plan Assessment & Plan (1) Left ankle sprain: Code(s): S93.402A - Sprain of unspecified ligament of left ankle, initial encounter Category: Medical Plan: He will continue with activities as tolerated. He will use the brace if needed with activities and use ice and anti-inflammatories for occasional flare-ups. He will return to work on 08/14 without restrictions. If there is any concerns he will contact our office otherwise follow up as needed. Coding Level of Care Code Est Pt Level 3 (66083) Complex EM visit Add On G2211 Diagnoses Left ankle sprain S93.402A
--- OUTSIDE RECORDS SUMMARY | 2024-08-11 13:45 | XMS_ITS | Encounter Summary ---
Author Organization [employer] Address [address] [facility] [address]t [place] [address] Care Team Providers Care Highway Engineer Name Role Phone Morena Manley MD Primary Care Provider [phone] Encounter Details Date Type Department Care Team ([facility] st Contact Info) Description 04/14/2024 Orders Only [facility] [address] [place], [place] [phone] Morena Manley MD [address] [place] [address] Social History Tobacco Use Types Packs/Day Years Used Date Smoking Tobacco: Former Cigarettes 0.3 20 1 - 2016 Smokeless Tobacco: Never Alcohol Use [...] EST Narrative 05/10/2024 11:48 AM EST ? [facility] ?[address] ?[place] [address] ?XRay Report ? Signed ? Patient: Hernan,Julio ?MR#: [id number] ?? 4 ? : 1970 ?Acct:[id number] ? Age/Sex: 53 / M ?ADM Date: 05/10/24 ? Loc: HO.WC ? Attending Dr: Neris MISTRY ? Ordering Physician: Karina Reese ?? Date of Service: 05/10/24 ?? Procedure(s): XR ankle LT min 3V ?? Accession Number(s): [id number] ? cc: Morena Manley MD; Karina Reese [...] DD/ 1110 ? TD/TT: 05/10/24 1115 ? Editing Intern: ? Procedure Note Raz, Image - 05/10/2024 [place] [address] XRay Report Signed Patient: Juan Becerra EMR#: [id number] 4 : 1970Acct:[id number] Age/Sex: 53 / MADM Date: 05/10/24 Loc: HO. Attending Dr: Neris MISTRY Ordering Physician: Karina Reese Date of Service: 05/10/24 Procedure(s): XR ankle LT min 3V Accession Number(s): [id number] cc: Morena Manley MD; Karina Reese EXAMINATION: [...] 05/10/24 1145 DD/ 1110 TD/TT: 05/10/24 1115 Editing Intern: [facility] External Provider IMG XR PROCEDURES Edited Result - Final documented in this encounter Visit Diagnoses Not on filedocumented in this encounter Additional Health Concerns Assessment Noted Time PHQ-9 Depression Total Score: 0 04/10/19 25 1:10 PM EST documented as of this encounter Care Teams Highway Engineer Relationship Specialty Start Date End Date Morena Manley MD [address] [place] [address] PCP - General Internal Medicine 03/30/13 documented as of this encounter
--- OUTSIDE RECORDS SUMMARY | 2024-08-11 13:45 | XMS_ITS | Clinical Summary ---
Author Organization [employer] Address [address] [facility] 7t [place] [address] Care Team Providers Care Manager Private Name Role Phone Morena Manley MD Primary Care Provider [phone] Allergies No known active allergies Medications Multiple Vitamin (Multi-Vitamin) tablet Take 1 tablet by mouth Once daily. 0 Active naproxen (Naprosyn) 500 MG tablet Take 1 tablet by mouth every 12 (twelve) hours. 0 Active albuterol (ProAir HFA) 108 (90 Base) MCG/ACT inhaler inhale 2 puff by inhalation route every 4 - 6 hours as needed 9 Active cholecalciferol (Vitamin D-3) 50 MCG (2000 UT) capsule take 1 by Oral route once 0 Active azithromycin (Zithromax) 250 MG tablet Take 2 tabs orally once a day on day 1 and then 1 tab orally daily for 4 more days 6 tablet 3 Active azelastine (Astelin) 0.1 % nasal spray Administer 1 spray into each nostril 2 times daily. Use in each nostril as directed 30 mL 1 3 Active methocarbamol (Robaxin) 750 MG tabletIndications :Acute midline low back pain without sciatica Take 1 tablet (750 mg) by mouth 4 times daily for 10 days. 40 tablet 4 Active nystatin (Nystop) 979777 UNIT/GM powderIndications :Candidal balanitis Apply topically 2 times daily. 30 g 4 12/01/19 25 Active ALPRAZolam (Xanax) 1 MG tablet Take 1 tablet (1 mg) by mouth if needed at bedtime for anxiety for up to 7 days. 4 tablet 4 Active lisinopril-hydroC HLOROthiazide 20-25 MG tabletIndications :Primary hypertension TAKE ONE TABLET EVERY MORNING 30 tablet 11 5 Active Active Problems Problem Noted Date Diagnosed Date Hypercholesterolemia 04/10/2024 Primary hypertension 04/10/2024 Encounters Date Type Department Care Team Description 05/25/2024 Orders Only [facility] External Provider, [facility] 05/17/2024 Refill [facility] [address] [place] [address] Morena Manley MD Primary hypertension from Last 3 Months Immunizations Name Administration Dates Next Due Influenza Injectable Quadriv alant Preservative Free IIV4 MDCK 12/30/2022,12/25/2021,12/24/2020,2019,01/03/2020 Influenza, IIV3, injectable 01/15/2016 Influenza, seasonal, injecta ble, preservative free 12/15/2023 Pfizer Covid-19 Vaccine 12+ 02/20/2021, 1,06/28/2020 Pfizer Covid-19 Vaccine 12+ Bivalent 01/21/2022 Tdap 09/08/2021 Zoster, Recombinant 06/01/2022 Family History Medical History Relation Name Comments Diabetes Father Hypertension Mother Relation Name Status Comments Father Mother Social History Tobacco Use Types Packs/Day Years Used Date Smoking Tobacco: Former Cigarettes 0.3 20 1 7 - 2017 Smokeless Tobacco: Never Tobacco Cessation:Counseling Given: Not [...] CONTRAST LEFT Routine 05/26/2024 11:45 AM EST LIPID PANEL, STANDARD Routine 04/14/2024 [...] EST Narrative 05/26/2024 11:46 AM EST ? [facility] ?[address] ?[place] [address] ? Magnetic Resonance Report ? Signed ? Patient: Hernan,Julio ?MR#: [id number] ?? 4 ? : 1970 ?Acct:[id number] ? Age/Sex: 53 / M ?ADM Date: 05/25/24 ? Loc: HO.MRI ? Attending Dr: Eliazar Bone MD ? Ordering Physician: Eliazar Bone MD ?? Date of Service: 05/25/24 ?? Procedure(s): MR ankle LT wo con ?? Accession Number(s): [id number] ? cc: Morena Manley MD; Eliazar Bone [...] mild neighboring subcutaneous fat ?? edema. ?? Uoot-kr-erypubdg contusion of the lateral aspect of the [...] 05/26/24 1146 ? DD/ 1145 ? TD/TT: 05/26/245 ? Roll Sheeting Cutter: ? Procedure Note Junaid Crandall - 05/26/2024 [place] [address] Magnetic Resonance Report Signed Patient: Juan Becerra EMR#: [id number] 4 : 1970Acct:[id number] Age/Sex: 53 / MADM Date: 05/25/24 Loc: HO.MRI Attending Dr: Eliazar Bone MD Ordering Physician: Eliazar Bone MD Date of Service: 05/25/24 Procedure(s): MR ankle LT wo con Accession Number(s): [id number] cc: Morena Manley MD; Eliazar Bone MD CLINICAL HISTORY: Swelling and pain after slip and fall on ice MR left ankle without gadolinium Comparison: None Findings: Normal alignment without acute fracture. Minimal incompletely visualized periostitis of the visualized distal fibular shaft above the syndesmosis likely posttraumatic in nature. There is mild neighboring subcutaneous fat edema. Empb-qa-zjbslvmw contusion of the lateral aspect of the [...] 05/26/24 1146 DD/ 1145 TD/TT: 05/26/24 1145 Roll Sheeting Cutter: [facility] External Provider IMG MRI PROCEDURES Final Result * (ABNORMAL) Lipid Panel, Standard (04/14/2024 9:29 AM EST) Triglycerides 136 <150 mg/dL [facility] Comment:Desirable Triglyceri de: less than 150 mg/dLBorderline High Triglyceride 150-199 mg/dLHigh Triglyceride: 200-499 mg/dLVery High Triglyceride: greater than or equal to 5OO mg/dL Cholesterol 239(H) <200 mg/dL [facility] Comment:Desirable Cholestero l: less than 200 mg/dLBorderline High Cholesterol: 200-239 mg/dLHigh Cholesterol: greater than 239 mg/dL LDL Cholesterol Calculated 162(H) <100 mg/dL [facility] Comment:Desirable LDL: less than 100 mg/dLNear Optimal/Above Optimal LDL: 110- 129 mg/dLBorderline High LDL: 130-159 mg/dLHigh LDL: 160-189 mg/dLVery High LDL: greater than or equal to 190 mg/dL HDL Cholesterol 50 >40 mg/dL [facility] Comment:Desirable HDL: great er than 40 mg/dL Note: This HDL assay may give artificially low results in patients with liver disease. Blood Venous blood specimen / Unknown 04/14/2024 9:29 AM EST 04/14/2024 1:59 PM EST Morena Manley MD LAB BLOOD ORDERABLES Final Result [facility] [address] [place] [address] [phone] * Hepatitis C Viral RNA, Quantitative, Real-Time PCR (12/02/2023 10:53 AM EDT) Hepatitis C Viral Load <15 NOT DETECTED NOT DETECTED IU/mL [facility] HCV Log PCR <1.18 NOT DETECTED NOT DETECTED Log IU/mL [facility] Comment:For additional infor mation, please refer [email or web address]/faq/PIH89y7(This link is being provided for informational/educational purposes only.)THIS TEST WAS PERFORMED AT:[facility] [place] [id number] SCHAEFER MD Blood Venous blood specimen / Unknown 12/02/2023 10:53 AM EDT 12/02/2023 2:18 PM EDT Morena Manley MD LAB BLOOD ORDERABLES Final Result [facility] [address] [place] [address] [phone] from Last 3 Months or Most Recently Relevant to Health Maintenance Insurance [facility] , [address] [place] [address] [place] Care Teams Manager Private Relationship Specialty Start Date End Date Morena Manley MD [address] [place] [phone] PCP - General Internal Medicine 03/30/13
--- OUTSIDE RECORDS SUMMARY | 2024-08-11 13:45 | XMS_ITS | Encounter Summary ---
Author Organization [employer] Address [address] [facility] 7 [place] [address] Care Team Providers Care Farm Equipment Service Technician Name Role Phone Morena Manley MD Primary Care Provider [phone] Encounter Details Date Type Department Care Team ([facility] st Contact Info) Description 08/17/2023 Orders Only [facility] [address] [place], [place] [phone] Morena Manley MD [address] [place] [address] Acute midline low back pain without sciatica [...] documented as of this encounter Care Teams Farm Equipment Service Technician Relationship Specialty Start Date End Date Morena Manley MD [address] [place] [id number] PCP - General Internal Medicine 03/30/13 documented as of this encounter
--- OUTSIDE RECORDS SUMMARY | 2024-08-11 13:45 | XMS_ITS | Encounter Summary ---
Author Organization [employer] Address [address] [place] [address] 7t [place] [address] Care Team Providers Care Car Seat Maker Name Role Phone Morena Manley MD Primary Care Provider [phone] Encounter Details Date Type Department Care Team (Latest Contact Info) Description 04/11/2021 Abstract [facility] CONVERSIONS Dental, Provider, DDS Social History Tobacco [...] on filedocumented in this encounter Care Teams Car Seat Maker Relationship Specialty Start Date End Date Morena Manley MD [address] [place] [address] PCP - General Internal Medicine 03/30/13 documented as of this encounter
--- OUTSIDE RECORDS SUMMARY | 2024-08-11 13:45 | XMS_ITS | Encounter Summary ---
Author Organization [employer] Address [address] [facility] [address] [place] [address] Care Team Providers Care Cannoneer Name Role Phone Morena Manley MD Primary Care Provider [phone] Encounter Details Date Type Department Care Team (Latest Contact Info) Description 10/12/2018 Abstract [facility] CONVERSIONS Dental, Provider, DDS Social History Tobacco [...] on filedocumented in this encounter Care Teams Cannoneer Relationship Specialty Start Date End Date Morena Manley MD [address] [place] [address] PCP - General Internal Medicine 03/30/13 documented as of this encounter
[2024-08-11 13:46] VITALS: BMI 29.6
== END 2024-08-11 14:00 | disposition home or self-care (01) ==
LOC: HO.HOS 13:42
PROVIDERS: PCP Internal Medicine; Visit Provider Physician Assistant
DX: S93.402A Sprain of unspecified ligament of left ankle, initial encounter (principal)
CPT/HCPCS: 99213; G2211

== ENCOUNTER → 2024-08-11 13:41 | Outpatient (BNVA) | payer OTHER, SELFPAY | PROVIDERS: PCP Internal Medicine; Visit Provider Physician Assistant | DX: S93.402D Sprain of unspecified ligament of left ankle, subsequent encounter (principal) | CPT/HCPCS: 99212 ==

== ENCOUNTER 2025-03-09 13:41 | Outpatient (AMB) | payer OTHER, SELFPAY ==
--- OUTSIDE RECORDS SUMMARY | 2025-02-28 11:00 | XMS_ITS | Encounter Summary ---
Author Organization [employer] Address [address] [facility] [address] [place] [address] Care Team Providers Care Pipe Inspector Name Role Phone Morena Manley MD Primary Care Provider [phone] Reason for Visit * Reason Comments Routine Cleaning Encounter Details Date Type Department Care Team ([facility] [address] Contact Info) Description 02/28/2025 11:00 AM EST Office Visit [facility] [address] [place] [address] Wendy Burger Periodontal disease (Primary Dx); Dental calculus; Dental plaque; Dental caries Social History Tobacco Use Types Packs/Day Years [...] AM EDT documented as of this encounter Last Filed Vital Signs Vital Sign Reading Time Taken Comments Blood Pressure 132/86 02/28/2025 10:51 AM EST Pulse - - Temperature - - Respiratory Rate - - Oxygen Saturation - - Inhaled Oxygen Concentration - - Weight - - Height - - Body Mass Index - - documented in this encounter Progress Notes * Wendy Burger - 02/28/2025 11:00 AM EST Patient ID: Juan Becerra is a 54 y.o. male. Time Out: Timeout Date: 02/28/25, Timeout Time: 1054 Location: [facility] Tooth: Maxilla and Mandible Procedure: Exam and X-rays Verified the above with patient, virtual assistant for advertisers, and provider. Confirmed via patient's chart, intraorally and by radiographs. Cnc Mill Set Up Operator: not applicable Medical Hx: Vitals: Blood pressure 132/86. Medications, Med Hx reviewed with patient and updated in chart. Treatment Provided Dental procedures in this visit D0210 - INTRAORAL - COMPLETE SERIES OF RADIOGRAPHIC IMAGES (Completed) Service provider: Wendy Burger Billsylvester provider: Juvenal Billings DMD D1330 - ORAL HYGIENE INSTRUCTIONS (Completed) Service provider: Wendy Marinelli provider: Juvenal Billings DMD Oral Cancer Screening: No lesions Head/Neck Exam: No Lesions Calculus: Heavy, Generalized, and Subgingival Plaque: Light and Generalized Stain: Moderate and Localized Bleeding: Heavy, Generalized, and Subgingival Gingiva: Perio Charting Completed, Bleeding on probing, Recession- localized, Edematous, and Erythematous OH: Poor Perio Chart: Completed Dental exam done by Dr. Billings. Oral hygiene instructions provided to patient including brushing technique and flossing. Recommendations: Comanche two times daily, modified brian technique, Floss daily, Electric toothbrush, Soft bristle toothbrush, Comanche Tongue, Anti-sensitivity toothpaste Recall Frequency: 3 mo NV: Hinduism Hygienist: Wendy Burger RDH * Juvenal Billings DMD - 02/28/2025 11:00 AM EST Dental procedures in this visit D0210 - INTRAORAL - COMPLETE SERIES OF RADIOGRAPHIC IMAGES (Completed) Service provider: Wendy Burger Billing provider: Juvenal Billings DMD D1330 - ORAL HYGIENE INSTRUCTIONS (Completed) Service provider: Wendy Burger Billing provider: Juvenal Billings DMD D0120 - PERIODIC ORAL EVALUATION - ESTABLISHED PATIENT (Completed) Service provider: Juvenal Billings DMD Billing provider: Juvenal Billings DMD Patient ID: Juan Becerra is a 54 y.o. male. Time Out: No data recorded Location: [facility] Tooth: all Procedure: Exam Verified the above with patient, virtual assistant for advertisers, and provider. Confirmed via patient's chart, intraorally and by radiographs. Cnc Mill Set Up Operator: not applicable Chief Complaint Patient presents with Routine Cleaning Medical Hx: Vitals: Blood pressure 132/86. Medical History[1] Medications: Encounter Medications[2] Objective HPI: no pain or discomfort per patient Soft Tissue Exam No findings documented this visit Head and Neck Exam: all structures examined Details: no swellings, ulcerations or lymphadenopathies OCS: negative Dental Exam Missing #17-19,32 #3-O decay Pt presents with generalized heavy supra and subgingival calculus Deep probing depths, various teeth mobile Vertical bone loss: #2-M, #6-D, #9-MD, #12-D, #13-D, #14-D, #25-M, #27-MD, #29- D, #31-D Possible extractions: #1,2,12,13,15,16,31 Recommend evaluation and treatment by ethnographic materials conservator Informed pt of findings and recommendations Referral written and instructed pt to contact office Radiographic Interpretation: Associated radiographs for today's visit were reviewed and finding(s) were discussed with the patient. Findings include: see above Hard Tissue Exam: Decay noted - see charting and treatment plan Perio Dx: Generalized Chronic Periodontitis Stage: III Grade: B Reference tooth chart for additional findings. Oral Cancer Risk: Low Risk Oral Hygiene Instructions: Comanche two times daily, modified brian technique, Floss daily, Electric toothbrush, Soft bristle toothbrush, Comanche Tongue, Anti- sensitivity toothpaste Caries Risk Assessment: Medium- one risk factor Assessment/Plan Referral to Euporaal Periodontics #3-O Pending treatment plan from ethnographic materials conservator Patient tolerated procedure well, all questions answered and expressed understanding. Dismissed in good condition. NV: #3-O Nuclear Reactor Operator: Wendy Burger Dentist: Juvenal Billings DMD [1] Past Medical History: Diagnosis Date Diabetes mellitus (HCC) Essential hypertension [2] Outpatient Encounter Medications as of 02/28/2025 Medication Sig Dispense Refill cholecalciferol (Vitamin D-3) 50 MCG (2000 UT) capsule take 1 by Oral route once lisinopril-hydroCHLOROthiazide 20-25 MG tablet TAKE ONE TABLET EVERY MORNING 30 tablet 11 Multiple Vitamin (Multi-Vitamin) tablet Take 1 tablet by mouth Once daily. albuterol (ProAir HFA) 108 (90 Base) MCG/ACT inhaler inhale 2 puff by inhalation route every 4 - 6 hours as needed (Patient not taking: Reported on 02/28/2025) ALPRAZolam (Xanax) 1 MG tablet Take 1 tablet (1 mg) by mouth if needed at bedtime for anxiety for up to 2 days. (Patient not taking: Reported on 02/28/2025) 2 tablet 0 azelastine (Astelin) 0.1 % nasal spray Administer 1 spray into each nostril 2 times daily. Use in each nostril as directed (Patient not taking: Reported on 02/28/2025) 30 mL 1 azithromycin (Zithromax) 250 MG tablet Take 2 tabs orally once a day on day 1 and then 1 tab orallydaily for 4 more days (Patient not taking: Reported on 02/28/2025) 6 tablet 0 meloxicam (Mobic) 15 MG tablet Take 1 tablet (15 mg) by mouth Once per day. (Patient not taking: Reported on 02/28/2025) 30 tablet 11 methocarbamol (Robaxin) 750 MG tablet Take 1 tablet (750 mg) by mouth 4 times daily for 10 days. (Patient not taking: Reported on 02/28/2025) 40 tablet 0 naproxen (Naprosyn) 500 MG tablet Take 1 tablet by mouth every 12 (twelve) hours. (Patient not taking: Reported on 02/28/2025) No facility-administered encounter medications on file as of 02/28/2025. documented in this encounter Plan of Treatment Upcoming Encounters Date Type Department Care Team (Late st Contact Info) Description 03/21/2025 11:00 AM EST Office Visit [facility] [address] [place] [address] Juvenal Billings DMD [address] [place] [address] Scheduled Orders Name Type Priority Associated Diagnoses Orde r Schedule UL UL PERIODONTAL SCALING AND ROOT PLANING - 4 OR MORE TEETH PER QUADRANT Dental Routine [address] arting 02/28/2025 LL LL PERIODONTAL SCALING AND ROOT PLANING - 4 OR MORE TEETH PER QUADRANT Dental Routine [address] arting 02/28/2025 UR UR PERIODONTAL SCALING AND ROOT PLANING - 4 OR MORE TEETH PER QUADRANT Dental Routine [address] arting 02/28/2025 LR LR PERIODONTAL SCALING AND ROOT PLANING - 4 OR MORE TEETH PER QUADRANT Dental Routine [address] arting 02/28/2025 3 O 3 O RESIN-BASED COMPOSITE - 1 SURF, POSTERIOR Dental Routine [address] arting 02/28/2025 documented as of this encounter Procedures Procedure Name Priority Date/Time Associated Diagnosis Comments PERIODIC ORAL EVALUATION - ESTABLISHED PATIENT Routine 02/28/2025 11:00 AM EST Periodontal disease Dental caries ORAL HYGIENE INSTRUCTIONS Routine 02/28/2025 11:00 AM EST Periodontal disease Dental caries INTRAORAL - COMPLETE SERIES OF RADIOGRAPHIC IMAGES Routine 02/28/2025 11:00 AM EST Periodontal disease Dental caries 31 O COMPOSITE FILLING Routine 12:00 AM EST 21 DO COMPOSITE FILLING Routine 02/29/20 25 12:00 AM EST 19 EXTRACTION Routine 02/28/2025 12:00 AM EST documented in this encounter Visit Diagnoses Diagnosis Periodontal disease- Primary Unspecified gingival and periodontal disease Dental calculus Accretions on teeth Dental plaque Accretions on teeth Dental caries Unspecified dental caries documented in this encounter Additional Health Concerns Assessment Noted Time PHQ-9 Depression Total Score: 0 04/10/19 25 1:10 PM EST documented as of this encounter Care Teams Pipe Inspector Relationship Specialty Start Date End Date Morena Manley MD [address] [place] [phone] PCP - General Internal Medicine 03/30/13 documented as of this encounter
--- NOTE | 2025-03-09 14:02 | MHC.OFFVIS ---
Vital Signs 03/09/25 14:06 Height 5 ft 3 in Weight 167 lb BMI 29.6 BP 146/96 H Blood Pressure Location Rt brachial Position Sitting Pulse 78 Pulse Source Pulse Oximeter Pulse Oximetry (%) 98 Oxygen Delivery Method Room Air Intake Visit Reasons: F/u [place] screening last seen 2022 Intake Note: Est pt for rescreening prior to initial colo. TREV 2022. CC; Pt denies any GI concerns or sx at this time. Pt confirms he never proceeded with the previous colonoscopy due to personal reasons. Glass Driller Required: No Accompanied by: Self / Same As Patient Allergies No Known Allergies Allergy (Verified 03/09/25 14:02) HPI HPI F/u [place] screening last seen 2022: Details: LAST VISIT: Office Visit (Signed) - 08/13/22 08:06 Screen for colon cancer Patient denies any GI, cardiac or respiratory symptoms.? Denies any issues with anesthesia in the past.? Denies any history of sleep apnea.? No history infectious diseases in the past or present.? Not on any anticoagulation therapy.? No family or personal history of colon cancer or polyps.? Patient denies melena, hematochezia, unintentional weight loss or ribbon like stools.? Discussed at length the pre-procedure,? prep, diet & medications as well as what to expect prior, during and after the procedure.?? Stressed the importance of good bowel prep. ?Recommended the use of Vaseline or Calmoseptine OTC & baby wipes with bowel movements to promote comfort.? ?Patient verbalizes understanding and agrees to plan of care.? He was given the opportunity to ask questions and all questions answered.? We will see him after the procedure.? Plan New bisacodyl (Dulcolax (bisacodyl)) take 2 tabs at noon the day before your colonoscopy 10 mg (2 x 5 mg) PO ONCE 1 day 2 tabs 0RF Z12.11 - Encounter for screening for malignant neoplasm of colon polyethylene glycol 3350 (Miralax) As directed by gastroenterology department at [facility] 238 grams PO ONCE 238 grams 0RF Z12.11 - Encounter for screening for malignant neoplasm of colon TODAY'S VISIT: Today's visit. Patient was last seen in 2022 in August for pre colonoscopy screening. Patient admits that he is little bed afraid of going for colonoscopy. Patient reports that he is not afraid to undergo anesthesia or have the colonoscopy itself. What the is afraid is that he will find out that he has a cancer. Patient denies having any family history of colorectal cancer. No issues with anesthesia in the past. No history of sleep apnea. Patient reports to be feeling fairly healthy. Moves his bowels without any issues. Denies dyspepsia, dysphagia or odynophagia. Not on any anticoagulation medication. Denies any cardiac or respiratory symptoms. 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 [employer] Review of Systems Const Denies weight gain and Denies weight loss ENT Reports no additional complaints, Denies dysphagia and Denies odynophagia Card Reports no additional complaints Resp Reports no additional complaints GI Denies abdominal pain, Denies belching, Denies melena, Denies bloating, Denies change in bowel habits, Denies dysphagia, Denies excessive flatus, Denies dyspepsia, Denies heartburn, Denies diarrhea, Denies loose stools, Denies nausea, Denies odynophagia and Denies vomiting Reports no additional complaints Musc Reports no additional complaints Neuro Reports no additional complaints Psych Reports no additional complaints Endo Reports no additional complaints Physical Exam Vital Signs: Last Vital Signs Pulse 78 03/09/25 14:06 BP 146/96 H 03/09/25 14:06 Pulse Ox 98 03/09/25 14:06 Oxygen Delivery Method Room Air 03/09/25 14:06 BMI result Body Mass Index 29.6 Const General: healthy appearing, no acute distress and well developed Nutritional Appearance: well nourished Orientation/consciousness: patient oriented x3 Resp Effort & Inspection: normal respiratory effort, able to speak in complete sentences, no tracheal deviation and symmetric chest movement Auscultation: clear to auscultation bilaterally Cardio Rate: regular rate GI Inspection: Yes normal to inspection and No distended Palpation (GI): Soft to palpation, not firm, nontender and No hepatosplenomegaly present Auscultation: normal bowel sounds General: Yes no CVA tenderness Back/Spine/Pelvis Back: no CVA tenderness Skin General skin exam: elasticity normal, turgor normal and dry skin Neuro General: patient oriented x3 Psych Appearance: grossly normal Mental Status: mental status grossly normal Assessment & Plan Assessment & Plan (1) Screen for colon cancer: Code(s): Z12.11 - Encounter for screening for malignant neoplasm of colon Plan Patient will be sent for colonoscopy. Patient reassurance provided to patient. Patient denies any melena, hematochezia, unintentional weight loss or ribbon like stools. He is healthy without any GI concerning symptoms or without any cardiac or respiratory symptoms. Colonoscopy ordered. Prep discussed with patient. What to expect before during and after procedure discussed with patient. Stressed importance of good bowel prep and clear liquid diet day before procedure. I will see patient after the procedure, sooner on as needed basis. He is agreeable to this plan and verbalizes understanding of instructions. He was given the opportunity to ask questions and all questions answered. Thank you for allowing me to participate in his care Orders: Referrals GI Procedure Notification Z12.11 - Encounter for screening for malignant neoplasm of colon Medications: New bisacodyl (Dulcolax (bisacodyl)) take 4 tabs at noon the day before your colonoscopy 20 mg (4 x 5 mg) PO ONCE 4 tabs 0RF constipation 1 day Z12.11 - Encounter for screening for malignant neoplasm of colon polyethylene glycol 3350 (Miralax) As directed by gastroenterology department at [facility] 238 grams PO ONCE 238 grams 0RF Z12.11 - Encounter for screening for malignant neoplasm of colon Coding Level of Care Code Est Pt Level 3 (96997) Diagnoses Screen for colon cancer Z12.11 Time Spent (min) 30 Comment 20 minutes spent with patient and additional 10 minutes spent reviewing his records
[2025-03-09 14:06] VITALS: BP 146/96; PULSE 78; O2SAT 98; BMI 29.6
--- OUTSIDE RECORDS SUMMARY | 2025-03-09 17:53 | XMS_ITS | Encounter Summary ---
Author Organization [employer] Address [address] [place] [address] [address] [place] [address] Care Team Providers Care Square Cutter Name Role Phone Morena Manley MD Primary Care Provider [phone]- [phone] Encounter Details Date Type Department Care Team (Late st Contact Info) Description 08/17/2023 Orders Only [facility] [address] [place], [place] [phone] Morena Manley MD [address] [place], [place] [phone] Acute midline low back pain without sciatica [...] as of this encounter Plan of Treatment Upcoming Encounters Date Type Department Care Team (Late st Contact Info) Description 03/21/2025 11:00 AM EST Office Visit [facility] ADULT D[facility] [address] [place], [place] [phone] Juvenal Billings, ADRIANA 505 [place], [place] [phone] documented as of this encounter Visit Diagnoses Diagnosis Acute midline low back pain without sciatica- Primary documented in this encounter Additional Health Concerns Assessment Noted Time PHQ-9 Depression Total Score: 0 04/16/19 23 2:04 PM EST documented as of this encounter Care Teams Square Cutter Relationship Specialty Start Date End Date Morena Manley MD [address] [place] [address] PCP - General Internal Medicine 03/30/13 documented as of this encounter
--- OUTSIDE RECORDS SUMMARY | 2025-03-09 17:53 | XMS_ITS | Encounter Summary ---
Author Organization [employer] Address [address] [facility] 7t [place] [address] Care Team Providers Care Movie Star Name Role Phone Morena Manley MD Primary Care Provider [phone] Encounter Details Date Type Department Care Team (Late st Contact Info) Description 08/17/2024 Orders Only [facility] MED & PEDS [address] [place], [place] [phone] Morena Manely MD [address] [place], [place] [phone] Pain of right heel (Primary Dx) Social History Tobacco Use Types [...] Upcoming Encounters Date Type Department Care Team ([facility] st Contact Info) Description 03/21/2025 11:00 AM EST Office Visit [facility] ADULT DENTAL [address] [place] [address] Juvenal Billigns DMD [address] [place] [address] documented as of this encounter Visit Diagnoses Diagnosis Pain of right heel- Primary documented in this encounter Additional Health Concerns Assessment Noted Time PHQ-9 Depression Total Score: 0 04/10/19 25 1:10 PM EST documented as of this encounter Care Teams Movie Star Relationship Specialty Start Date End Date Morena Manley MD [address] [place] [address] PCP - General Internal Medicine 03/30/13 documented as of this encounter
--- OUTSIDE RECORDS SUMMARY | 2025-03-09 17:53 | XMS_ITS | Clinical Summary ---
Author Organization [employer] Address [address] [facility] 7t [place] [address] Care Team Providers Care Manager Ct Name Role Phone Morena Manley MD Primary Care Provider Allergies No known active allergies Medications Multiple [...] 4 more days 6 tablet 3 Active Additional Information Patient not taking.Reported on 02/28/2025 azelastine (Astelin) 0.1 % nasal spray Administer 1 spray into each nostril 2 times daily. Use in each nostril as directed 30 mL 1 3 Active Additional Information Patient not taking.Reported on 02/28/2025 methocarbamol (Robaxin) 750 MG tabletIndication s:Acute midline low back pain without sciatica Take 1 tablet (750 mg) by mouth 4 times daily for 10 days. 40 tablet 4 Active Additional Information Patient not taking.Reported on 02/28/2025 lisinopril-hydro CHLOROthiazide 20-25 MG tabletIndication s:Primary hypertension TAKE ONE TABLET EVERY MORNING 30 tablet 11 Active meloxicam (Mobic) 15 MG tabletIndication s:Pain of right heel Take 1 tablet (15 mg) by mouth Once per day. 30 tablet 11 08/18/19 Active Additional Information Patient not taking.Reported on 02/28/2025 ALPRAZolam (Xanax) 1 MG tablet Take 1 tablet (1 mg) by mouth if needed at bedtime for anxiety for up to 2 days. 2 tablet Active Additional Information Patient not taking.Reported on 02/28/2025 Active Problems Problem Noted Date Diagnosed Date Hypercholesterolemia 04/10/2024 Primary hypertension 04/10/2024 Encounters Date Type Department Care Team Description 02/28/2025 11:00 AM EST Office Visit [facility] ADULT DENTAL [address] [place] [address] Wendy Burger Periodontal disease (Primary Dx); Dental calculus; Dental plaque; Dental caries 01/17/2025 2:25 PM EDT Immunization [facility] MED & PEDS [address] [place] [address] Sada Munson, LARRY Encounter for immunization 01/17/2025 Travel from Last 3 Months Immunizations Immunization Administration Dates Next Due Influenza Injectable Quadriv alant Preservative Free IIV4 MDCK 12/30/2022,12/25/2021,12/24/2020,2019,01/03/2020 Influenza, IIV3, injectable 01/15/2016 Influenza, seasonal, injecta ble, preservative free 01/17/2025,12/15/2023 Pfizer Covid-19 Vaccine 12+ 02/20/2021, 1,06/28/2020 Pfizer Covid-19 Vaccine 12+ Bivalent 01/21/2022 Tdap 09/08/2021 Zoster, Recombinant 06/01/2022 Family History Medical History Relation Name Comments Diabetes Father Hypertension Mother Relation Name Status Comments Father Mother Social History Tobacco Use Types Packs/Day Years Used Date Smoking Tobacco: Former Cigarettes 0.3 20 1 997 - 2017 Smokeless Tobacco: Never Tobacco Cessation:Counseling [...] Pressure 132/86 02/28/2025 10:51 AM EST Pulse 68 04/10/2024 1:08 PM EST Temperature 36.7 C (98 F) 04/10/2024 1:08 PM EST Respiratory Rate 16 04/10/2024 1:08 PM EST Oxygen Saturation 98% 12/01/2023 2:27 PM EDT Inhaled Oxygen Concentration - - Weight 76.7 kg (169 lb) 04/10/2024 1:08 PM EST Height 160 cm (5' 3 ) 04/10/2024 1:08 PM EST Body Mass Index 29.94 04/10/2024 1:08 PM EST Plan of Treatment Upcoming Encounters Date Type Department Care Team (Late st Contact Info) Description 03/21/2025 11:00 AM EST Office Visit [facility] ADULT DENTAL [address] [place] [address] Juvenal Billings, DMD [address] [place] [address] Health Maintenance Due Date Last Done Comments CT Colonography 1968 Colonoscopy 1968 Colorectal Cancer Screening 1968 FIT DNA/Cologuard 1968 FIT 1968 FOBT 1968 Sigmoidoscopy 1968 Alcohol/Substance Use Screening 1980 Hepatitis B Vaccines (1 of 3 - 19+ 3-dose series) 06/23/1987 Pneumococcal Vaccine: 50+ Years (1 of 1 - PCV) 2018 Dental Prophylaxis 10/10/2021 04/11/2021, 0 10/12/2018, 10/22/2016 SDOH Screening 11/22/2024 11/23/2023 COVID-19 Vaccine ( season) 2024 01/21/2022, 02/20/2021, 07/19/2020, Additional history exists Depression Screening 04/10/2025 04/10/2024, 04/10/19 Disability Screening 04/10/2025 04/10/2024 Dental Oral Exam 08/29/2025 02/28/2025, 04/10/2021 Tobacco Screening 02/28/2026 02/28/2025 Dental X-Ray: Bitewings 03/01/2026 02/29/20 25, 10/22/2016, 10/14/2010 Dental X-Ray: Full Mouth 03/01/2028 02/28/2025, 10/04 Lipid Panel 04/14/2029 04/14/2024, 11/04, 04/10/2022, Additional history exists DTaP/Tdap/Td Vaccines (2 - Td or Tdap) 09/09/2031 09/08/2021 RSV Patients and Patients Aged 60 years or older (1 - 1-dose 75+ series) 06/23/2043 Zoster Vaccines Discontinued 06/01/2022 Hepatitis C Screening Completed 12/02/2023 Influenza Vaccine Completed 01/17/2025, , 12/30/2022, Additional history exists HIB Vaccines Aged Out [...] patient's age to complete this topic Meningococcal B Vaccine Aged Out No l onger eligible based on patient's age to complete [...] Dental caries 31 O COMPOSITE FILLING Routine 02/28/2025 12:00 AM EST 21 DO COMPOSITE FILLING Routine 02/28/2025 12:00 AM EST 19 EXTRACTION Routine 02/28/2025 12:00 AM EST LIPID PANEL, STANDARD Routine 04/14/2024 9:29 AM EST Hypercholesterolemi a HEPATITIS C VIRAL RNA, QUANTITATIVE, REAL-TIME PCR Routine 12/02/2023 10:53 AM EDT Annual physical exam PROPHYLAXIS - ADULT Routine 04/11/2021 1 2:00 AM EST from Last 3 Months or Most Recently Relevant to Health Maintenance Results * (ABNORMAL) Lipid Panel, Standard (04/14/2024 9:29 AM EST) Triglycerides 136 <150 mg/dL [facility] Comment:Desirable Triglyceri de: less than 150 mg/dLBorderline High Triglyceride 150-199 mg/dLHigh Triglyceride: 200-499 mg/dLVery High Triglyceride: greater than or equal to 5OO mg/dL Cholesterol 239(H) <200 mg/dL [facility] Comment:Desirable Cholestero l: less than 200 mg/dLBorderline High Cholesterol: 200-239 mg/dLHigh Cholesterol: greater than 239 mg/dL LDL Cholesterol Calculated 162(H) <100 mg/dL [facility] Comment:Desirable LDL: less than 100 mg/dLNear Optimal/Above Optimal LDL: 110- 129 mg/dLBorderline High LDL: 130-159 mg/dLHigh LDL: 160-189 mg/dLVery High LDL: greater than or equal to 190 mg/dL HDL Cholesterol 50 >40 mg/dL [facility] Comment:Desirable HDL: great er than 40 mg/dL Note: This HDL assay may give artificially low results in patients with liver disease. Blood Venous blood specimen / Unknown 04/14/2024 9:29 AM EST 04/14/2024 1:59 PM EST us Morena Manley MD LAB BLOOD ORDERABLES Final Result [facility] [address] [place] [address] [phone] * Hepatitis C Viral RNA, Quantitative, Real-Time PCR (12/02/2023 10:53 AM EDT) Hepatitis C Viral Load <15 NOT DETECTED NOT DETECTED IU/mL [facility] HCV Log PCR <1.18 NOT DETECTED NOT DETECTED Log IU/mL [facility] Comment:For additional infor mation, please refer [email or web address]/[email or web address](This link is being provided for informational/educational purposes only.)THIS TEST WAS PERFORMED AT:[facility] [place] [id number] SCHAEFER MD Blood Venous blood specimen / Unknown 12/02/2023 10:53 AM EDT 12/02/2023 2:18 PM EDT Morena Manley MD LAB BLOOD ORDERABLES Final Result [facility] [address] [place] [address] [phone] from Last 3 Months or Most Recently Relevant to Health Maintenance Insurance [facility] , [address] [place] [address] [place] [facility] MEDICAID STAND ADULT Care Teams Manager Ct Relationship Specialty Start Date End Date Morena Manley MD [address] [place] [id number] PCP - General Internal Medicine 03/30/13
--- OUTSIDE RECORDS SUMMARY | 2025-03-09 17:53 | XMS_ITS | Encounter Summary ---
Author Organization [employer] Address [address] [facility] 7t [place] [address] Care Team Providers Care Film Process Operator Name Role Phone Morena Manley MD Primary Care Provider [phone]- [phone] Encounter Details Date Type Department Care Team ([facility] st Contact Info) Description 12/06/2024 Orders Only [facility] MED & PEDS [address] [place], [place] [phone] Morena Manley MD [address] [place], [place] [phone] Other infective acute otitis externa of right ear (Primary Dx) Social History Tobacco Use Types [...] Upcoming Encounters Date Type Department Care Team ([facility] st Contact Info) Description 03/21/2025 11:00 AM EST Office Visit [facility] ADULT DENTAL [address] [place] [address] Juvenal Billings DMD 505 [place] [address] documented as of this encounter Visit Diagnoses Diagnosis Other infective acute otitis externa of right ear- Primary documented in this encounter Additional Health Concerns Assessment Noted Time PHQ-9 Depression Total Score: 0 04/10/19 25 1:10 PM EST documented as of this encounter Care Teams Film Process Operator Relationship Specialty Start Date End Date Morena Manley MD [address] [place] [address] PCP - General Internal Medicine 03/30/13 documented as of this encounter
--- OUTSIDE RECORDS SUMMARY | 2025-03-09 17:53 | XMS_ITS | Encounter Summary ---
Author Organization [employer] Address [address] [facility] 7t [place] [address] Care Team Providers Care Fishing Rod Mechanic Name Role Phone Morena Manley MD Primary Care Provider [phone] Encounter Details Date Type Department Care Team ([facility] st Contact Info) Description 04/14/2024 Orders Only [facility] CHC MED & PEDS [address] [place], [place] [phone] Morena Manley MD [address] [place], [place] [phone] Social History Tobacco Use Types Packs/Day Years [...] Description 03/21/2025 11:00 AM EST Office Visit [facility] ADULT DENTAL [address] [place] [address] Juvenal Billings, DMD 505 [place] [address] documented as of this encounter Procedures Procedure Name Priority Date/Time Associated Diagnosis Comments XR ANKLE 3+ VIEWS LEFT Routine 05/10/2024 11:10 AM EST documented in this encounter Results * XR Ankle 3+ Views Left (05/10/2024 11:10 AM EST) Anatomical Region Laterality Modality Lower Extremities, Ankle Left Radiogr aphic Imaging 05/10/2024 11:1 0 AM EST Narrative 05/10/2024 11:48 AM EST [address] [address] XRay Report Signed Patient: Juan Becerra MR#: [id number] 4 : 1970 Acct:[id number] Age/Sex: 53 / M ADM Date: 05/10/24 Loc: [facility] Attending Dr: Neris MISTRY Ordering Physician: Karina Reese Date of Service: 05/10/24 Procedure(s): XR ankle LT min 3V Accession Number(s): [id number] cc: Morena Manley MD; Karina Reese EXAMINATION: [...] Signed By: <Electronically signed by Kelvin Griffin MD in OV> 05/10/24 1145 DD/ 1110 TD/TT: 05/10/24 1115 Behavioral Health Clinician: Procedure Note Donotuseinterpreter, Image - 05/10/[address] [address] XRay Report Signed Patient: Juan Becerra EMR#: [id number] 4 : 1970Acct:[id number] Age/Sex: 53 / MADM Date: 05/10/24 Loc: .[facility] Attending Dr: Neris MISTRY Ordering Physician: Karina Reese Date of Service: 05/10/24 Procedure(s): XR ankle LT min 3V Accession Number(s): [id number] cc: Morena Manley MD; Karina Reese EXAMINATION: [...] Kelvin Solano MD 05/10/2024 11:45 AM EST RP Dictated By: Kelvin Pang MD Signed By: <Electronically signed by Kelvin Griffin MDin OV> 05/10/24 1145 DD/ 1110 TD/TT: 05/10/24 1115 Behavioral Health Clinician: [facility] External Provider IMG XR PROCEDURES Edited Result - Final documented in this encounter Visit Diagnoses Not on filedocumented in this encounter Additional Health Concerns Assessment Noted Time PHQ-9 Depression Total Score: 0 04/10/19 1:10 PM EST documented as of this encounter Care Teams Fishing Rod Mechanic Relationship Specialty Start Date End Date Morena Manley MD [address] [place] [address] PCP - General Internal Medicine 03/30/13 documented as of this encounter
--- OUTSIDE RECORDS SUMMARY | 2025-03-09 17:54 | XMS_ITS | Encounter Summary ---
Author Organization [employer] Address [address] [place] [address] 7 [place] [address] Care Team Providers Care Engineering Production Liaison Name Role Phone Morena Manley MD Primary Care Provider [phone]- [phone] Encounter Details Date Type Department Care Team (Latest Contact Info) Description 04/11/2021 Abstract [facility] CONVERSIONS Dental, Provider, DDS Social History [...] Description 03/21/2025 11:00 AM EST Office Visit [facility] ADULT DENTAL [address] [place] [address] Juvenal Billings, DMD [address] [place] [address] documented as of this encounter Visit Diagnoses Not on filedocumented in this encounter Care Teams Engineering Production Liaison Relationship Specialty Start Date End Date Morena Manley MD [address] [place] [address] PCP - General Internal Medicine 03/30/13 documented as of this encounter
--- OUTSIDE RECORDS SUMMARY | 2025-03-09 17:54 | XMS_ITS | Encounter Summary ---
Author Organization [employer] Address [address] [place] [address] 7 [place] [address] Care Team Providers Care Rustic Fence Builder Name Role Phone Morena Manley MD Primary Care Provider +1- [phone] Encounter Details Date Type Department Care Team (Latest Contact Info) Description 10/12/2018 Abstract [facility] CONVERSIONS Dental, Provider, DDS Social [...] Description 03/21/2025 11:00 AM EST Office Visit [facility] CHC ADULT DENTAL [address] [place] [address] Juvenal Billings, DMD [address] [place] [address] documented as of this encounter Visit Diagnoses Not on filedocumented in this encounter Care Teams Rustic Fence Builder Relationship Specialty Start Date End Date Morena Manley MD [address] [place] [address] PCP - General Internal Medicine 03/30/13 documented as of this encounter
== END 2025-03-09 14:32 | disposition home or self-care (01) ==
PROVIDERS: PCP Internal Medicine; Visit Provider Nurse Practitioner Family
DX: Z01.818 Encounter for other preprocedural examination (principal); Z12.11 Encounter for screening for malignant neoplasm of colon
CPT/HCPCS: 99213